=== PATIENT | male | born 1965 | race Caucasian/White ===

== ENCOUNTER 2019-10-22 13:06 | Inpatient (IN) | payer BC, OTHER ==
[~2019-10-22 13:06] MED LIST: Heparin 1,000 UNITS/ML VIAL ONE
[2019-10-22] MEDS ORDERED: Cefepime 2 GM VIAL ONE (13:30)
[2019-10-22] MEDS ORDERED: Vancomycin 1 GM/200 ML BAG ONE (13:30)
[2019-10-22] MEDS ORDERED: Lorazepam 2 MG/ML VIAL ONE (13:38)
[2019-10-22 13:46] LABS: Hemoglobin 15.1 g/dL (14.0-18.0); Mean Corpuscular HGB CONC 31.8 g/dL (32.0-36.0); Mean Corpuscular Hemoglobin 31.6 pg (27.0-31.0); Mean Corpuscular Volume 99.3 fL (78.0-98.0); Mean Platelet Volume 9.7 fL (7.4-10.4); Platelet Count 162 thou/uL (130-400); RBC Distribution Width 12.3 % (11.5-14.5); Red Blood Cell (RBC) Count 4.77 mill/uL (4.70-6.10); White Blood Cell (WBC) Count 15.1 thou/uL (4.8-10.8)
[2019-10-22] MEDS ORDERED: Acetaminophen 500 MG TAB ONE (14:04)
[2019-10-22 14:05] LABS: Band 15 % (5-11); Large Platelets SLIGHT; Lymphocytes 1 % (21-51); MDiff Complete? YES; Monocytes 4 % (0-10); Neutrophil 80 % (42-75); Platelet Morphology Comment Appears Adequate; RBC Morphology Normal; Vacuoles SLIGHT
[2019-10-22 14:13] LABS: ALT (SGPT) 16 U/L (8-55); AST (SGOT) 22 U/L (5-34); Albumin 3.5 g/dL (3.5-5.0); Alkaline Phosphatase 92 U/L (40-110); Anion Gap 19 mmol/L (10-20); BUN (Urea Nitrogen) 26 mg/dL (8.4-25.7); Bilirubin, Total 1.7 mg/dL (0.2-1.2); CK (CPK) 90 U/L (30-200); Calc. Creatinine Clearance 0 mL/min (70-130); Calcium 8.3 mg/dL (7.8-10.44); Carbon Dioxide 19 mmol/L (22-29); Chloride 99 mmol/L (98-107); Estimated GFR-MDRD 61; Globulin 2.8 g/dL (2.4-3.5); Glucose 242 mg/dL (70-105); Lipase 15 U/L (8-78); Potassium 4.2 mmol/L (3.5-5.1); Protein, Total 6.3 g/dL (6.0-8.3); Sodium 133 mmol/L (136-145)
--- NOTE | 2019-10-22 14:45 | RAD ---
XR Chest 1 View Portable HISTORY: Chest pain COMPARISON: None FINDINGS: The heart size is at upper pole limits of normal. The lungs are well expanded without focal areas of consolidation, pneumothorax or pleural effusions. IMPRESSION: No radiographic evidence of acute cardiopulmonary process.
--- NOTE | 2019-10-22 15:03 | RAD ---
XR Foot Lt 3 View STANDARD INDICATION: Emergency examination for left foot pain COMPARISON: None. FINDINGS: Bones: There is hypertrophic destructive and disorganized changes involving the midfoot likely relate d to a neuropathic osteoarthropathy. There is postsurgical change of a ray resection involving the great toe. There is exuberant healed fracture deformity involving the second digit metatarsal shaft. No acute fractures evident. There is ankylosis of the PIP joint of the third digit. No radiopaque foreign body is evident. Joints: Neuropathic osteoarthropathy changes of the midfoot Lisfranc alignment: Residual Lisfranc joint alignment appears within normal limits. There is some sag ging of the Lisfranc joint on the lateral projection suspicious for instability related to neuropathic osteoarthropathy. Soft tissues: Severe soft tissue swelling of the midfoot, forefoot and distal foreleg. IMPRESSION: 1. Ray amputation of the great toe. 2. Neuropathic osteoarthropathy of the midfoot 3. No definite acute osseous abnormality. 4. Prominent soft tissue swelling left foot and ankle.
[2019-10-22] MEDS ORDERED: Diltiazem 125 MG/25 ML ONE (16:07)
--- NOTE | 2019-10-22 16:07 | PDOC.FPRHP ---
- History of Present Illness Chief Complaint: foot hurts History of Present Illness: Patient is a 54 yo male with history of presenting to [facility] ED due to pain in his left foot. Patient states that this has happened before, but not to this extent. His left foot began to swell on Monday, 3 days ago. Patient also noticed that his left foot became quite erythematous and painful by Monday afternoon. Patient has a history of a lumbar back surgery. After his back surgery, he admits to decreased sensation to his feet. He also reports amputation of his left big toe following a bone infection. Today, patient states that he woke up and noticed right arm pain and left chest pain. The chest pain subsided once he got to the ED. In the ED, patient was found to be in atrial fibrillation. - Allergies/Adverse Reactions Allergies Allergy/AdvReac Type Severity Reaction Status Date / Time No Known Allergies Allergy Verified 10/23/19 00:48 - History PMHx: denies past medical history other than surgical history PSHx: left first toe amputation 1 year ago, L1-5 surgery FHx: noncontributory SHx: admits to daily EtoH consumption - 1 bottle of Scotch per day, dips tobacco daily, occasional marijuana use - Review of Systems General: reports: fever/chills Eyes: denies: vision changes ENT: denies: nasal congestion, rhinorrhea Respiratory: denies: cough, congestion, shortness of breath Cardiovascular: reports: chest pain. denies: palpitation, edema Gastrointestinal: denies: nausea, vomiting, diarrhea, constipation, abdominal pain Genitourinary: denies: incontinence, dysuria Skin: denies: rashes, lesions Musculoskeletal: reports: pain, tenderness, swelling Neurological: reports: numbness. denies: weakness Psychological: denies: anxiety, depression - Vital signs BP: 128/63 HR: 139 RR: 26 Tmax: 99.1 Pox: 95% on 2L Wt: 100 kg - Physical Exam Constitutional: NAD, awake, alert and oriented HEENT: normocephalic and atraumatic, EOMI, conjunctiva clear Neck: supple, FROM Chest: no-tender to palpation Heart: other (tachycardic, irregular rhythm) Lungs: no respiratory distress, good air movement, no rales/rhonchi, other ( tachypnec) Abdomen: non-tender, no masses/distention Musculoskeletal: other (tenderness to palpation to the right forearm most prominently in the wrist joint; amputated right first toe with edema and erythema noted) Neurological: DTRs 2+, other (decreased sensation in biltaeral lower extremities ) Skin: no rash/lesions, no jaundice Heme/Lymphatic: no unusual bruising or bleeding, no purpura, no petechia Psychiatric: normal mood and affect, intact recent and remote memory FMR H&P: Results - Labs Result Diagrams: 10/23/19 03:12 10/23/19 03:12 Lab results: WBC 15.1 thou/uL (4.8-10.8) H 10/22/19 13:26 Hgb 15.1 g/dL (14.0-18.0) 10/22/19 13:26 Hct 47.4 % (42.0-52.0) 10/22/19 13:26 MCV 99.3 fL (78.0-98.0) H 10/22/19 13:26 Plt Count 162 thou/uL (130-400) 10/22/19 13:26 Band Neuts % (Manual) 15 % (5-11) H 10/22/19 13:26 Sodium 133 mmol/L (136-145) L 10/22/19 13:26 Potassium 4.2 mmol/L (3.5-5.1) 10/22/19 13:26 Chloride 99 mmol/L (98-107) 10/22/19 13:26 Carbon Dioxide 19 mmol/L (22-29) L 10/22/19 13:26 BUN 26 mg/dL (8.4-25.7) H 10/22/19 13:26 Creatinine 1.24 mg/dL (0.7-1.3) 10/22/19 13:26 Glucose 242 mg/dL (70-105) H 10/22/19 13:26 Lactic Acid 2.8 mmol/L (0.5-2.2) H 10/22/19 13:26 Calcium 8.3 mg/dL (7.8-10.44) 10/22/19 13:26 Total Bilirubin 1.7 mg/dL (0.2-1.2) H 10/22/19 13:26 AST 22 U/L (5-34) 10/22/19 13:26 ALT 16 U/L (8-55) 10/22/19 13:26 Alkaline Phosphatase 92 U/L (40-110) 10/22/19 13:26 Creatine Kinase 90 U/L (30-200) 10/22/19 13:26 Serum Total Protein 6.3 g/dL (6.0-8.3) 10/22/19 13:26 Albumin 3.5 g/dL (3.5-5.0) 10/22/19 13:26 Lipase 15 U/L (8-78) 10/22/19 13:26 - Radiology Interpretation Other Additional comment: Chest Xray: no radiographic evidence of acute cardiopulmnary process Foot Xray: ray amputation of great toe, neuropathic osteoarthropathy of midfoot , no definite acute osseous abnormality, prominent soft tissue swelling FMR H&P: A/P - Plan Afib with RVR - likely 2/2 to sepsis - started on dilt drip - TTE ordered - admitting to IMCU - BNP ordered Sepsis - source: likely cellulitis vs. septic joint vs. gout - SIRS criteria: tachycardic, tachypneic, WBC of 15.1 - lactic acid: 2.8 > 1.4 - started on vanc and cefepime - s/p fluids in ED - ESR, CRP, Uric acid pending Hyperglycemia - glucose of 242, denies history of DM - will order A1C Alcohol Abuse - reports drinking 1+ pint of scotch/day - denies any history of withdrawal signs/symptoms - ASE protocol in place PCP: CC PPx: Lovenox Diet: NPO Code: Full Dispo: will admit to IMCU; LOS > 48hrs FMR H&P: Upper Level - Pertinent history 54-year-old male presents to the emergency department complaining of right wrist left foot and left-sided chest pain. Patient stated that his left foot started hurting on Monday. Right wrist started hurting today. Left-sided chest pain started later this morning. Patient does not recall if he had any specific injuries. Patient states that she chronically drinks 1 pint or more of scotch per day. Denies any history of withdrawal. 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 Due to this he has had chronic problems with his feet and subsequently had a amputation of his left great metatarsal Grace approximately one year ago. He noticed that his left foot started to become painful and swollen and red a few days ago. He states that he has poor feeling in the foot but does experience pain currently. In the emergency department patient was found to be in a fib with RVR which the patient states is a new findings to him. He was also found to have a elevated glucose but denies any history of diabetes. Patient admitted that he has not seen a doctor in to or greater years. He states that he normally receives most of his care at an outside facility but came here today because his Daughter works at this hospital and he suspects that he has multiple problems going on which concerns him. ROS: General: denies fevers, chills, fatigue pulm: Denies shortness of breath, cough, rhinorrhea cardiac: denies palpitations, lightheadedness, dizziness. confirms left cgeat wall pain GI: denies nausea, vomiting, diarrhea Extremities: confirms left fore foot, right wrist pain Skin: denies any lesions, infections. Confirms left foot swelling and erythema Neuro: Confirms Bilateral foot numbness. Denies headache, weakness, dizziness PE: Gen: Appears sleepy, likely 2/2 to benzos in ED, well nourished, NAD HEENT: EMOI, no scleral icterus Pulm: CTAB Cardiac: irregularly irregular with rapid rate, no audible murmur Abd: Soft, non tender, non distended Ext: Left foot with mid 1 metatarsal amputation, swollen, minimally tender and erythematous. chronic charcot changes to bilateral feet. right wrist is very tender with in ROM or palpation. pulse and sensation intact. Neuro: A&Ox3 Skin: No rash or jaundice - Pertinent findings New onset afib with RVR - Received 2x 5mg IV push of dilt in ED followed by dilt ggt - Initially had low BP response that improved after 2L NS - Will admit to IMCU and continue dilt drip with goal of rate control - If BP continues to be a problem will need to consider amio and cards consult - If hemodynamically unstable consider defib - Afib likely 2/2 to new sepsis, if does not resolve will need to consider therapeutic anticoagulation - Trops negative, trend x3 Sepsis - Cellulitis vs septic joint vs osteomyelitis vs gout - ESR, CRP, uric acid, procal ordered - Likely will need left foot MRI to r/o osteo vs other soft tissue infection - xray was not definitive and showed severe soft tissue swelling - Continue fluid resuscitation - IV vanc and cefepime - Continue to trend CBC and monitor left foot Alcohol Abuse - 1 pint or more of scotch per day, no hx of withdrawal - ASE protocol - Will discuss and encourage cessation Hyperglycemia - Likely 2/2 to DM, denies hx - A1c ordered Plan: Admit to IMCU for dilt drip management. Goal of rate control. Will continue to work up source of sepsis, most likely due to left foot but unsure exact cause. Will continue to medically optimize other underlying medical issues. For more detail see PGY1 note above Antonio Spears PGY2 - Plan Date/Time: 10/22/19 1341 I, [], have evaluated this patient and agree with findings/plan as outlined by summer internship resident. Pertinent changes/additions are listed here. Addendum - Attending - Attending Attestation Date/Time: 10/23/19 0769 I personally evaluated the patient and discussed the management with the team. I agree with the History, Examination, Assessment and Plan documented above with any addition or exceptions noted below. Antibiotics and consider additional imaging. Blood cultures. Begin low dose cardizem. O2 PRN. Monitor closely in IMCU.
[2019-10-22 16:29] LABS: SARS-CoV-2 NAA Rapid Test Not Detected (NotDetected)
--- NOTE | 2019-10-22 17:17 | RAD ---
XR Wrist 3 Rt View STANDARD: 10/22/2019 4:32 PM CLINICAL INDICATION: Right wrist pain COMPARISON: None. FINDINGS: Bones: No acute osseous abnormality. Joints: Joints space is preserved.. Soft Tissue: Normal.. IMPRESSION: No acute osseous abnormality..
[2019-10-22 17:24] LABS: Lactic Acid 1.4 mmol/L (0.5-2.2)
[2019-10-22] MEDS ORDERED: Diltiazem 125 MG in Sodium Chloride 0.9% 100 ML IVPB SCH (17:57)
[2019-10-22 20:13] LABS: Hemoglobin A1c 5.2 % (4.0-6.0)
[2019-10-22 20:20] LABS: Uric Acid 5.3 mg/dL (3.5-7.2)
[2019-10-22 20:25] LABS: Troponin I 0.024 ng/mL (< 0.028)
[2019-10-22 20:41] LABS: CRP (Inflammatory) 37.47 mg/dL (= or < 0.5)
[2019-10-22] MEDS ORDERED: Vancomycin HCl 1.25 GM in Sodium Chloride 0.9% 250 ML 250 ML IVPB SCH (21:00)
[2019-10-22] MEDS: Cefepime 2 GM in Sodium Chloride 0.9% 100 ML IVPB SCH (21:28)
[2019-10-23] MEDS: Lactated Ringer's 1,000 ML IV SCH ×4 (00:43→23:16)
[2019-10-23] MEDS: Vancomycin 1.5 GRAM/300 ML BAG 1.5 GM in Premix Bag 1 BAG IVPB SCH ×2 (03:00→14:08)
[2019-10-23 03:36] LABS: Band 22 % (5-11); Hemoglobin 13.7 g/dL (14.0-18.0); Lymphocytes 4 % (21-51); MDiff Complete? YES; Mean Corpuscular HGB CONC 34.1 g/dL (32.0-36.0); Mean Corpuscular Hemoglobin 34.2 pg (27.0-31.0); Mean Platelet Volume 8.6 fL (7.4-10.4); Monocytes 7 % (0-10); Neutrophil 67 % (42-75); Platelet Count 164 thou/uL (130-400); Platelet Morphology Comment Appears Adequate; RBC Distribution Width 12.4 % (11.5-14.5); Red Blood Cell (RBC) Count 4.01 mill/uL (4.70-6.10); White Blood Cell (WBC) Count 15.1 thou/uL (4.8-10.8)
[2019-10-23 03:43] LABS: ALT (SGPT) 13 U/L (8-55); AST (SGOT) 20 U/L (5-34); Albumin 2.9 g/dL (3.5-5.0); Alkaline Phosphatase 67 U/L (40-110); Anion Gap 13 mmol/L (10-20); BUN (Urea Nitrogen) 19 mg/dL (8.4-25.7); Bilirubin, Total 1.4 mg/dL (0.2-1.2); Calc. Creatinine Clearance 169 mL/min (70-130); Calcium 8.4 mg/dL (7.8-10.44); Carbon Dioxide 20 mmol/L (22-29); Chloride 106 mmol/L (98-107); Estimated GFR-MDRD Greater than 90; Glucose 99 mg/dL (70-105); Potassium 3.8 mmol/L (3.5-5.1); Protein, Total 5.9 g/dL (6.0-8.3); Sodium 135 mmol/L (136-145)
[2019-10-23] MEDS: Cefepime 2 GM in Sodium Chloride 0.9% 100 ML IVPB SCH ×3 (05:42→20:53)
--- NOTE | 2019-10-23 06:21 | PDOC.FM ---
- Subjective Subjective: Mr. Roy continues to complain of severe pain in his R hand. He describes the pain as a 10/10 burning most intense in his wrist, but extending to the tips of his fingers and proximal to the elbow. It is painful constantly and exacerbated by movement and palpation. It does not appear swollen and he denies feeling tight. Endorses some L foot pain but mostly at his heel which he suspects is d/ t walking a long distance to the ED yesterday. Endorses some L sided heart pressure that he states he mostly feels if he has slept wrong on his L shoulder. He denies any association with exertion. Denies dyspnea/SOB/trembling. - Objective Vital Signs & Weight: Vital Signs (12 hours) Temp Pulse Ox 10/23/19 04:00 99.8 F H 10/22/19 23:44 97.8 F 10/22/19 20:00 99.2 F 96 Weight Weight 102.149 kg Most Recent Monitor Data Heart Rate from ECG 76 NIBP 135/77 NIBP BP-Mean 96 Respiration from ECG 25 SpO2 97 Result Diagrams: 10/23/19 03:12 10/23/19 03:12 Phys Exam - Physical Examination Constitutional: NAD Neck: supple Respiratory: clear to auscultation bilateral Cardiovascular: no significant murmur HR irregular L midfoot 1+ pitting edema. No edema of R hand/forearm Dorsalis pedis pulses not palpable b/l. Radial pulses 1+ Psychiatric: normal affect, A&O x 3 Skin: no rash Deviation from normal: Erythema of L midfoot swelling -: No erythema/discoloration of R hand/forearm Dx/Plan - Plan Plan: This is a 54M who presented to the ED with R arm pain and L sided CP Afib with RVR - Likely 2/2 to sepsis therefore not anticoagulating currently - Received 2x 5mg IV push of dilt in ED followed by dilt gtt Initially had low BP response that improved after 2L NS - Continue dilt gtt Admitting to IMCU If BP continues to be a problem, will need to consider amio If hemodynamically unstable, consider defib - Fluctuating in and out of NSR - Will consult cards - TTE ordered, results pending - BNP 168 Sepsis - Source: likely cellulitis vs. septic joint vs. gout - SIRS criteria: tachycardic, tachypneic, WBC of 15.1 - Lactic acid: 2.8 > 1.4 - Vanc and Cefepime started 10/21 - ESR 68 - CRP37.5 - Uric acid nml - BCx pending - Foot xray not definitive. Showed severe soft tissue swelling of midfoot and neuropathic osteoarthropathy - Dr. Jackson saw him and agreed with need for MRI, continued abx - Will obtain L foot MRI - Will consult ortho R arm pain - Unclear etiology - Burning 10/10 pain worst at wrist but extending to tips of fingers and proximal to elbow - No erythema/edema/deformity - Will consult ortho - Consider MRI Hyperglycemia - Glucose of 242 on arrival - Denies history of DM - A1C 5.2 - Monitor BGs Alcohol Use Disorder - Reports drinking 1+ pint of scotch/day - Denies any history of withdrawal signs/symptoms - ASE protocol in place PCP: KADIE PPx: Lovenox Diet: NPO Code: Full Dispo: will admit to IMCU; LOS > 48hrs Addendum - Attending - Attending Attestation Date/Time: 10/23/19 1411 I personally evaluated the patient and discussed the management with the team. I agree with the History, Examination, Assessment and Plan documented above with any addition or exceptions noted below. Discuss foot and arm with ortho. Continue antibiotics. MRI foot. D/c gtt after overlapping with PO. Cards consult for afib
[2019-10-23] MEDS ORDERED: Vancomycin HCl 1.5 GM in Sodium Chloride 0.9% 250 ML 300 ML IVPB SCH (09:00)
[2019-10-23] MEDS: Enoxaparin Sodium 40 MG/0.4 ML SYRINGE SC SCH (09:40)
[2019-10-23] MEDS ORDERED: Diltiazem HCl SR 90 mg Capsule PO SCH (10:30)
[2019-10-23] MEDS ORDERED: Diltiazem HCl SR 60 mg Capsule PO SCH (11:00)
--- NOTE | 2019-10-23 13:43 | CON ---
DATE OF CONSULTATION: 10/23/2019 REASON FOR CONSULTATION: The patient is in [facility]. HISTORY OF PRESENT ILLNESS: The patient is pleasant, 54 years old, who presented to the ER yesterday with left foot pain and right arm pain. Apparently, swelling in left foot began 3 days prior to admission. It has become erythematous and quite painful. He does have a history of left great toe amputation in the past. He also has a history of Charcot joint in that area. The right arm pain is somewhat mysterious. He does not know how that happened, but he says it is very difficult to move the right arm and very tender to the touch. PAST MEDICAL HISTORY: Essentially unremarkable. PAST SURGICAL HISTORY: Left first toe amputation a year ago. FAMILY MEDICAL HISTORY: Unremarkable. SOCIAL HISTORY: Drinks up to a pint of scotch per day, but usually not that much. Dips tobacco daily. Occasional marijuana use. REVIEW OF SYSTEMS: Otherwise negative. PHYSICAL EXAMINATION: VITAL SIGNS: Temperature 99.4, pulse 76, blood pressure 126/86, O2 saturation 95%. GENERAL: He is awake and alert, in no distress. HEENT: Remarkable for class 4 Mallampati airway with tongue hypertrophy. NECK: No adenopathy or JVD. LUNGS: Clear. CARDIAC: S1 and S2, now regular, currently on Cardizem drip at 5 mg/hour. ABDOMEN: Soft and nontender to palpation. EXTREMITIES: No clubbing. He has extensive swelling in his left foot with 4+ pitting edema. He has tenderness over right dorsal aspect of his arm. LABORATORY DATA: Sodium 135, potassium 3.8, chloride 106, CO2 of 20, BUN 19, creatinine 0.7, and glucose 99. Hemoglobin A1c is 5.2. Total bilirubin 1.4. C-reactive protein 37. COVID test negative. White blood cell count 15, hematocrit 40, and platelet count 164 with 67% neutrophils, 22% bands, sedimentation rate is 68. IMAGING DATA: Radiographs of the foot, arm, chest are negative. ASSESSMENT: The patient appears to have either some type of cellulitis or rheumatologic phenomenon going on. Presentation does seem consistent with sepsis and bacteremia. PLAN: 1. Agree with antibiotics. 2. Would do further imaging of arm and foot. 3. Consider orthopedic consultation for foot. 4. Monitor for alcohol withdrawal symptoms. 5. Given his alcohol consumption, I would put him on thiamine. Job ID: [id number]
--- NOTE | 2019-10-23 16:12 | MRI ---
EXAM: MRI Lower Ext Jt Lt W WO Con DATE: 10/23/2019 11:41 AM INDICATION: Left foot infection COMPARISON: Left foot radiograph dated October 22, 2019 FINDING: Contrast: 20 cc of MultiHance. There is postprocedural change of a great toe ray amputation. There is extensive soft tissue swelling and cellulitis involving the dorsal aspect of the foot and ankle. There is multiloculated fluid collections surrounding the midfoot and forefoot suspicious for abscesses. One of the largest measure s 4.3 x 8.2 cm on image 15 of series 9 overlying the dorsal aspect of the midfoot. There is an additional fluid collection seen along the medial soft tissues of the midfoot, at the level of the ta lar head measuring 3.3 cm. An additional fluid collection is seen subjacent to the great toe metatarsal base measuring 2.9 cm on image 27 of series 11. There is some edematous change and mild en hancement involving the mid foot which has radiographic changes of a neuropathic osteoarthropathy. Component of an osteomyelitis particularly involving the cuneiforms, navicular and cuboid are of conc reanna. There is prominent healed deformity involving the second digit metatarsal shaft. IMPRESSION: 1. Abnormal T2 hyperintensity with enhancement involving the mid foot tarsal bones is likely largely related to a neuropathic osteoarthropathy; however, superimposed osteomyelitis cannot be entirely excluded. 2. Prominent loculated peripherally enhancing fluid collections surrounding the midfoot are suspiciou s for periarticular abscesses. 3. Prominent left foot cellulitis and edema.
[2019-10-23] MEDS: Acetaminophen 325 MG TAB PO PRN (16:26)
[2019-10-23] MEDS ORDERED: Magnevist 469MG/ML 20 ML VIAL ONE (16:27)
[2019-10-23] MEDS: Ibuprofen 600 MG TAB PO PRN (16:41)
[2019-10-23] MEDS: Diltiazem HCl SR 60 mg Capsule PO SCH (20:51)
--- NOTE | 2019-10-23 22:16 | CON ---
DATE OF CONSULTATION: CHIEF COMPLAINT: Left foot infection. HISTORY OF PRESENT ILLNESS: Mr. Roy is a 54-year-old male, who presented to the hospital yesterday. He reports that over the weekend, he began having malaise and feeling sickly. He began having fevers and chills. He also began having left foot swelling and redness as well as warmth. He began having right arm numbness and pain as well. The patient has been admitted to the hospital. He has been started on intravenous antibiotics for possible sepsis. MRI has been obtained as well as foot x-rays. The patient has a known history of Charcot arthropathy of the feet, left more severe than the right. He also has a history of left great toe amputation 1 year ago. He reports that his foot is always enlarged and malaligned, however, it is worse now since the weekend. He has increased swelling, much more so than normal. PAST MEDICAL HISTORY: Previous back injury and subsequent surgery leading to dense neuropathy of the bilateral lower extremities. PAST SURGICAL HISTORY: Previous back surgery as well as left great toe amputation. FAMILY MEDICAL HISTORY: Noncontributory. SOCIAL HISTORY: The patient drinks alcohol daily. He uses tobacco, uses marijuana. He denies other drug use. REVIEW OF SYSTEMS: Positive as per HPI. Otherwise, negative 10-point review of systems. IMAGING DATA: X-rays of the left foot as well as MRI of the left foot demonstrate advanced Charcot arthropathy of the midfoot. There is previous great toe amputation. There are destructive changes and extensive arthropathy throughout the midfoot. He does have a large fluid collection dorsally as well as medially at the foot consistent with possible abscess. There is some edema and fluid of the midfoot, which is more consistent with Charcot changes rather than osteomyelitis. Right wrist x-rays are negative. PHYSICAL EXAMINATION: VITAL SIGNS: Current temperature is 97.8, heart rate is 89, respiratory rate is 19, oxygen saturation 99%. GENERAL: He is alert, talkative, no apparent distress. HEENT: Normocephalic, atraumatic. RESPIRATORY: Breathing comfortably. ABDOMEN: Soft, nontender, nondistended. MUSCULOSKELETAL: The patient's left lower extremity has obvious Charcot changes. There is deformity of the foot with prominent talar head medially. There is pes planus. He has had amputation of the great toe with healed wounds. There is a superficial ulceration of the plantar foot. He has a large dorsal swelling of the foot with fluctuance to palpation dorsally. The foot is warm and erythematous. He has cellulitic changes as well. The patient's right upper extremity has difficulty with motion at the hand. He has neuropathy to light touch. He is able to just very minimally move the fingers. He has a strongly palpable pulse. There is no significant ecchymosis. No evidence of compartment syndrome. IMPRESSION: A 54-year-old male with peripheral neuropathy, Charcot arthropathy, and now likely an infection of the midfoot with abscess formation. The patient also has neuropathy of the right arm consistent with compression. I have seen very similar findings in someone who has passed out from alcohol intoxication and laid on their arm. I think this is the most likely scenario explaining his arm findings. PLAN: Regarding the foot, we will plan for operative intervention tomorrow if he is not significantly improved. He will likely need a dorsal incision for drainage of his abscess. His foot is very severely damaged from his neuropathic changes; however, I do not think he would want to proceed with amputation at this point. We will try to salvage the foot and clear the infection. He will need to continue intravenous antibiotics. Observation for his right arm with elevation and continued attempts at movement of the fingers. N.p.o. midnight with preparation for surgery tomorrow. Job ID: [id number]
[2019-10-24 01:09] LABS: Vancomycin, Trough 12.8 ug/mL
[2019-10-24] MEDS: Vancomycin 1.5 GRAM/300 ML BAG 1.5 GM in Premix Bag 1 BAG IVPB SCH ×3 (02:09→18:21)
[2019-10-24 04:05] LABS: ALT (SGPT) 26 U/L (8-55); AST (SGOT) 32 U/L (5-34); Albumin 2.8 g/dL (3.5-5.0); Alkaline Phosphatase 83 U/L (40-110); Anion Gap 13 mmol/L (10-20); BUN (Urea Nitrogen) 16 mg/dL (8.4-25.7); Bilirubin, Total 0.6 mg/dL (0.2-1.2); Calc. Creatinine Clearance 169 mL/min (70-130); Calcium 8.2 mg/dL (7.8-10.44); Carbon Dioxide 22 mmol/L (22-29); Chloride 105 mmol/L (98-107); Estimated GFR-MDRD Greater than 90; Globulin 2.8 g/dL (2.4-3.5); Glucose 97 mg/dL (70-105); Potassium 3.5 mmol/L (3.5-5.1); Protein, Total 5.6 g/dL (6.0-8.3); Sodium 136 mmol/L (136-145)
[2019-10-24 05:10] LABS: Band 7 % (5-11); Eosinophils 5 % (0-10); Hemoglobin 12.9 g/dL (14.0-18.0); Hypochromia SLIGHT = 6-15 cells (100X) (0-5/hpf); Lymphocytes 6 % (21-51); MDiff Complete? YES; Mean Corpuscular HGB CONC 33.8 g/dL (32.0-36.0); Mean Corpuscular Hemoglobin 34.2 pg (27.0-31.0); Mean Platelet Volume 8.8 fL (7.4-10.4); Monocytes 5 % (0-10); Neutrophil 77 % (42-75); Platelet Count 180 thou/uL (130-400); Platelet Morphology Comment Appears Adequate; RBC Distribution Width 12.4 % (11.5-14.5); Red Blood Cell (RBC) Count 3.76 mill/uL (4.70-6.10); White Blood Cell (WBC) Count 13.8 thou/uL (4.8-10.8)
--- NOTE | 2019-10-24 05:28 | PDOC.FM ---
- Subjective Subjective: Mr. Roy is doing well this morning with improved R arm pain. His R arm is elevated above his head as recommended by Dr. Paredes. Pt is aware plan is to take him to OR for I&D today. He denies SOB/dyspnea/CP/V. Endorses some D which he attributes to lack of diet and several medications. - Objective Vital Signs & Weight: Vital Signs (12 hours) Temp 10/24/19 04:00 97.0 F L 10/24/19 00:00 97.4 F L 10/23/19 19:35 97.8 F Weight Admit Weight 102.149 kg Weight 102.149 kg Most Recent Monitor Data Heart Rate from ECG 63 NIBP 125/78 NIBP BP-Mean 93 Respiration from ECG 14 SpO2 100 I&O: 10/22/19 10/23/19 10/24/19 06:59 06:59 06:59 Intake Total 2260 Output Total 625 Balance 1635 Result Diagrams: 10/24/19 03:19 10/24/19 03:19 Phys Exam - Physical Examination Constitutional: NAD Neck: supple Respiratory: no wheezing, no rales, clear to auscultation bilateral Cardiovascular: RRR, no significant murmur Musculoskeletal: pulses present (Strong radial and dp pulses b/l.) Edema/Erythema of L midfoot increased sicne yesterday. Neurological: non-focal, moves all 4 limbs Psychiatric: normal affect, A&O x 3 Skin: no rash Dx/Plan - Plan Plan: This is a 54M who presented to the ED with R arm pain and L sided CP Afib with RVR - Likely 2/2 to sepsis therefore not anticoagulating currently - Received 2x 5mg IV push of dilt in ED followed by dilt gtt Initially had low BP response that improved after 2L NS - Dilt gtt discontinued 10/22. Now PO. Admitting to IMCU. If BP continues to be a problem, will need to consider amio If hemodynamically unstable, consider defib - Fluctuating in and out of NSR therefore keeping him in IMCU, per Joel - Consulted cards (Dr. Maldonado), appreciate recs Recommended continued PO Diltiazem Is considering long-term anticoagulation depending on if AFib resolves - Echo showed EF 50-55% with moderate tricuspid/mitral regurg and mildly dilated LA - BNP 168 Sepsis - Source: likely cellulitis vs. septic joint vs. gout - SIRS criteria: tachycardic, tachypneic, WBC of 15.1 - Lactic acid: 2.8 > 1.4 - Vanc and Cefepime started 10/21 - ESR 68 - CRP37.5 - Uric acid nml - BCx pending Two samples NGTD x1 day - Foot xray not definitive. Showed severe soft tissue swelling of midfoot and neuropathic osteoarthropathy - L foot MRI showed suspicion for periarticular abscess. Could not r/o osteo - Consulted ortho. Dr. Jackson recommended continuation of abx and I&D of L foot on 10/23 - Will consult PT/OT/post-acute care/CM d/t to severity of Charcot foot R arm pain - Unclear etiology - Burning, sharp, deep and superficial pain worst at wrist but extending to tips of fingers and proximal to elbow - No erythema/edema/deformity - R wrist xray normal - Ortho consulted, appreciate recs - Consider MRI - Dr. Maldonado recommended R UE U/S to r/o venous causes despite what would be an atypical presentation for it Hyperglycemia - Glucose of 242 on arrival - Denies history of DM - A1C 5.2 - Monitor BGs Alcohol Use Disorder - Reports drinking scotch daily - Denies any history of withdrawal signs/symptoms - ASE protocol in place - No withdrawal sxs PCP: [facility] PPx: Lovenox Diet: NPO Code: Full Dispo: will admit to IMCU; LOS > 48hrs Addendum - Attending - Attending Attestation Date/Time: 10/24/19 6601 I personally evaluated the patient and discussed the management with the team. I agree with the History, Examination, Assessment and Plan documented above with any addition or exceptions noted below.
[2019-10-24] MEDS: Cefepime 2 GM in Sodium Chloride 0.9% 100 ML IVPB SCH ×3 (06:07→21:55)
[2019-10-24] MEDS: Lactated Ringer's 1,000 ML IV SCH ×3 (06:08→18:21)
[2019-10-24] MEDS: Ibuprofen 600 MG TAB PO PRN (08:14)
[2019-10-24] MEDS: Acetaminophen 325 MG TAB PO PRN (08:15)
[2019-10-24] MEDS: Diltiazem HCl SR 60 mg Capsule PO SCH ×2 (08:15→21:51)
[2019-10-24] MEDS: Thiamine 100 MG TAB PO SCH (08:15)
[2019-10-24] MEDS: Enoxaparin Sodium 40 MG/0.4 ML SYRINGE SC SCH (08:16)
--- NOTE | 2019-10-24 09:04 | PRG ---
DATE OF SERVICE: 10/24/2019 SUBJECTIVE: Mr. Roy is doing better. His rate appears controlled. He has sinus rhythm with PACs. He is currently on diltiazem only. Arm appears to be improved. He has less pain today versus yesterday. OBJECTIVE: VITAL SIGNS: Blood pressure 120/80, pulse 72, respirations 20. LUNGS: Clear to auscultation. HEART: Regular rate and rhythm with extrasystolic beat. ABDOMEN: Soft, nontender, nondistended. EXTREMITIES: No edema. IMPRESSION: 1. Atrial fibrillation. 2. Cellulitis. 3. Alcohol abuse. 4. Right arm pain. RECOMMENDATIONS: 1. Recommend venous duplex of the right upper extremity. 2. Continue Cardizem. 3. The patient is scheduled for I and D today. 4. Given the patient's low CHADS2-VASc score, I would recommend full-dose aspirin. Job ID: [id number]
--- NOTE | 2019-10-24 09:11 | CON ---
DATE OF CONSULTATION: 10/23/2019 REASON FOR CONSULTATION: Paroxysmal atrial fibrillation. PRIMARY SPECIAL EDUCATION INCLUSION TEACHER: None. HISTORY OF PRESENT ILLNESS: Mr. Roy is a pleasant 54-year-old gentleman who recently presented with cellulitis. He was found to be in atrial fibrillation with rapid ventricular response. He was placed on IV Cardizem. He has fluctuated between atrial fibrillation and sinus rhythm. He is currently asymptomatic. His main complaint today is left arm pain. He does have a strong alcohol history, drinking a quart of scotch likely every night. He continues to work. He states he has been told he has had atrial fibrillation in the past, but states was unsure. He also was told he had diabetes in the past, but does not feel like he does. His Hb A1c was less than 6. PAST MEDICAL HISTORY: Charcot foot. SURGICAL HISTORY: Left first toe amputation. FAMILY HISTORY: Negative. SOCIAL HISTORY: Positive alcohol use. Positive tobacco use. Occasional marijuana use. REVIEW OF SYSTEMS: Ten-point review of systems is reviewed and as above, otherwise negative. PHYSICAL EXAMINATION: VITAL SIGNS: Blood pressure 131/81, pulse 72, respirations 20. GENERAL: Patient is a pleasant male who is in no acute distress. The patient appears their stated age. NEUROLOGIC: The patient is alert and oriented x3 with no focal neurologic deficits. HEENT: Sclerae without icterus. Mouth has moist mucous membranes with normal pallor. NECK: No JVD. Carotid upstroke brisk. No bruits bilaterally. LUNGS: Clear to auscultation with unlabored respirations. BACK: No scoliosis or kyphosis. CARDIAC: Regular rate and rhythm with normal S1 and S2. No S3 or S4 noted. No significant rubs, murmurs, thrills, or gallops noted throughout the precordium. PMI is not displaced. There is no parasternal heave. ABDOMEN: Soft, nontender, nondistended. No peritoneal signs present. No hepatosplenomegaly. No abnormal striae. EXTREMITIES: 2+ femoral and 2+ dorsalis pedis pulses. No cyanosis, clubbing, or edema. SKIN: No gross abnormalities. PERTINENT LABORATORY DATA: Hemoglobin 12.9, hematocrit 38, white blood cell count 13.8. Creatinine 0.72. C-reactive protein 37. BNP of 168. IMPRESSION: 1. Paroxysmal atrial fibrillation. 2. Alcohol abuse. 3. Cellulitis. 4. Right arm pain. RECOMMENDATIONS: Patient's CHADS Vasc score is 1. He does not appear to have diabetes based on his most recent HbA1c. He does have hypertension, although states his blood pressure per his account has been stable. He is on no medications at home. His CHADS score in my opinion is between 0 and 1. I discussed anticoagulation therapy versus aspirin. He would like to proceed with aspirin therapy only. Would certainly seem reasonable. Given that his heart rate is currently stable, would recommend continuing p.o. Cardizem in addition to antibiotic therapy. For his left arm pain, would recommend a venous duplex of the upper extremity, although no swelling present. He has an excellent pulse noted to the radial artery, so unlikely to be an obstruction from a vascular standpoint. I did employee counselor him on alcohol abuse. He is on DT protocol. Job ID: [id number]
--- NOTE | 2019-10-24 09:12 | PRG ---
DATE OF SERVICE: 10/24/2019 SUBJECTIVE: The patient is going down the OR later today for drainage of abscess in his left foot. Overall, he feels better today. OBJECTIVE: VITAL SIGNS: Temperature 99, pulse 72, blood pressure 131/81. HEENT: Unremarkable. NECK: No JVD. LUNGS: Clear. CARDIAC: S1 and S2. Regular. ABDOMEN: Soft. EXTREMITIES: Left foot swelling. LABORATORY DATA: White blood cell count 13, hematocrit 38, and platelet count 118. Sodium 136, potassium 3.5, BUN 16, creatinine 0.7, and glucose 97. ASSESSMENT: 1. Charcot joint, left foot. 2. Foot abscess. 3. Alcohol abuse. PLAN: 1. Continue antibiotics. 2. Probably stable enough to move out to the surgical floor postop today. Job ID: [id number]
--- NOTE | 2019-10-24 09:42 | ULT ---
Exam: Right upper extremity venous ultrasound with Doppler HISTORY: Right arm pain COMPARISON: None TECHNIQUE: Grayscale, color flow, Doppler imaging and spectral wave form analysis of the right approx imately venous system FINDINGS: There is compressibility and flow of the internal jugular vein. The flow in the subclavian vein. Ther e is compressibility and flow in the axillary vein and brachial vein, cephalic vein, basilic vein, radial vein and ulnar vein. IMPRESSION: No evidence of thrombus in the right upper extremity venous system.
[2019-10-24] MEDS ORDERED: Dexamethasone 20 MG/5 ML VIAL ONE (10:16)
[2019-10-24] MEDS ORDERED: Ondansetron PF 4 MG/2 ML Vial ONE (10:16)
[2019-10-24] MEDS ORDERED: Metoclopramide HCl 10 MG/2 ML VIAL ONE (10:16)
[2019-10-24] MEDS ORDERED: Ketorolac Tromethamine 30 MG/ML VIAL ONE (10:16)
[2019-10-24] MEDS ORDERED: Lidocaine 1% PF 5 ML VIAL ONE (10:16)
[2019-10-24] MEDS ORDERED: PROPOFOL 200 MG/20 ML VIAL ONE (10:16)
[2019-10-24] MEDS ORDERED: Neomycin-Polymyxin 1 ML AMP ONE (10:55)
[2019-10-24] MEDS ORDERED: Famotidine/PF 20 mg/2ml Vial ONE (11:26)
[2019-10-24] MEDS ORDERED: Fentanyl 100 MCG/2 ML VIAL ONE (11:26)
[2019-10-24] MEDS ORDERED: Promethazine HCl 25 MG/ML VIAL SLOW IVP PRN (13:15)
[2019-10-24] MEDS ORDERED: Promethazine HCl 25 MG/ML VIAL IM PRN (13:15)
[2019-10-24] MEDS ORDERED: Ondansetron HCl/PF 4 MG/2 ML Vial IVP PRN (13:15)
[2019-10-24] MEDS: Aspirin 325 MG TAB PO SCH (15:01)
--- NOTE | 2019-10-24 18:19 | OP ---
DATE OF PROCEDURE: 10/24/2019 OPERATION PERFORMED: Irrigation and debridement of left foot abscess. PREOPERATIVE DIAGNOSIS: Left foot infection with abscess over the dorsal foot. POSTOPERATIVE DIAGNOSIS: Left foot infection with abscess over the dorsal foot. COMPLICATIONS: None. ESTIMATED BLOOD LOSS: Minimal. SPARE HAND CARDING: Alonso Saunders PA-C. IMPLANTS: None. INDICATIONS: Mr. Roy is a 54-year-old male who has Charcot arthropathy of the foot. He has developed sepsis. He has been found to have a large abscess and infection of the left midfoot. He has been indicated for irrigation and debridement of the foot to hopefully eradicate infection. He is at high risk of further infection and other complications including the possible need for amputation in the future. DESCRIPTION OF PROCEDURE: Mr. Roy was identified in the preoperative holding area. His correct extremity was marked. He was carried to the operating room. He was positioned supine. General anesthesia was induced. A multidisciplinary time-out was performed. The left lower extremity was prepped and draped in sterile fashion. We began the procedure with a dorsal incision over the foot. We dissected down through the subcutaneous tissues to the fascia, which was opened. We encountered a large purulent abscess. This was cultured. There was quite a bit of fluid evacuated. We at this point thoroughly irrigated with copious lavage. We performed an excisional debridement. We worked down to the bony level. We opened the midfoot joints and irrigated into the joints themselves as well. There was purulence of the deep joints. We performed an excisional debridement with a knife as well as a curette. We then loosely closed the skin edges. At this point, we packed the wound with a Kerlix gauze soaked in Betadine. A sterile dressing was applied. The patient was taken to the recovery room in good condition without complication. Job ID: [id number]
[2019-10-25] MEDS: Vancomycin 1.5 GRAM/300 ML BAG 1.5 GM in Premix Bag 1 BAG IVPB SCH ×3 (02:38→19:39)
[2019-10-25] MEDS: Lactated Ringer's 1,000 ML IV SCH (02:38)
[2019-10-25 05:02] LABS: Band 11 % (5-11); Hemoglobin 10.6 g/dL (14.0-18.0); Lymphocytes 5 % (21-51); MDiff Complete? YES; Mean Corpuscular HGB CONC 32.5 g/dL (32.0-36.0); Mean Corpuscular Hemoglobin 33.8 pg (27.0-31.0); Mean Platelet Volume 9.4 fL (7.4-10.4); Monocytes 6 % (0-10); Neutrophil 78 % (42-75); Platelet Count 183 thou/uL (130-400); RBC Distribution Width 12.4 % (11.5-14.5); Red Blood Cell (RBC) Count 3.13 mill/uL (4.70-6.10); White Blood Cell (WBC) Count 12.5 thou/uL (4.8-10.8)
--- NOTE | 2019-10-25 06:18 | PDOC.FM ---
- Subjective Subjective: Mr. Roy is doing well today. The pain in his R wrist has improved and has regained some functionality even though he continues to state it is his greatest source of pain. He states the pain in his foot is not bothering him. He continues to endorse a little L sided CP like when he came in. He describes it as a cramping in his L shoulder that he can feel in his chest some. He has continued to have bowel movements and denies V/D/SOB/dyspnea. - Objective Vital Signs & Weight: Vital Signs (12 hours) Temp BP Pulse Ox 10/25/19 03:36 98.7 F 10/24/19 23:50 98.2 F 10/24/19 20:00 151/76 H 98 10/24/19 19:16 98.1 F Weight Admit Weight 102.149 kg Weight 102.149 kg Most Recent Monitor Data Heart Rate from ECG 58 NIBP 122/75 NIBP BP-Mean 90 Respiration from ECG 22 SpO2 100 I&O: 10/23/19 10/24/19 10/25/19 06:59 06:59 06:59 Intake Total 2260 2880 Output Total 625 950 Balance 1635 1930 Result Diagrams: 10/25/19 03:20 10/25/19 03:20 Phys Exam - Physical Examination Constitutional: NAD (Sitting up comfortably, eating breakfast) Neck: supple, full ROM Rhonchi in lower lobes b/l Cardiovascular: no significant murmur HR irregular Gastrointestinal: no distention Musculoskeletal: pulses present (radial pulses 2+ b/l. dp pulse 2+ in R foot. Could not check R foot d/t bandage), edema present (In L foot, bandaged. 1+ edema at ankle, with mild edema affecting up to mid-tibia) Neurological: non-focal, moves all 4 limbs Psychiatric: normal affect, A&O x 3 Skin: no rash Dx/Plan - Plan Plan: This is a 54M who presented to the ED with R arm pain and L sided CP Afib with RVR - Likely 2/2 to sepsis therefore not anticoagulating currently - Received 2x 5mg IV push of dilt in ED followed by dilt gtt Initially had low BP response that improved after 2L NS - Dilt gtt discontinued 10/22. Now PO. Admitting to IMCU. If BP continues to be a problem, will need to consider amio If hemodynamically unstable, consider defib - Consulted cards (Dr. Maldonado), appreciate recs Recommended continued PO Diltiazem Is considering long-term anticoagulation depending on if AFib resolves HR continues to be irregular. Feels comfortable sending him to floor on CCB with outpt f/u - ASA as anticoagulation therapy d/t CHADSVASC score of 1. - Echo showed EF 50-55% with moderate tricuspid/mitral regurg and mildly dilated LA - BNP 168 Sepsis - Source: likely cellulitis vs. septic joint vs. gout - SIRS criteria: tachycardic, tachypneic, WBC of 15.1 - Lactic acid: 2.8 > 1.4 - Vanc and Cefepime started 10/21 - ESR 68 - CRP37.5 - Uric acid nml - BCx pending Two samples NGTD x2 day - Foot xray not definitive. Showed severe soft tissue swelling of midfoot and neuropathic osteoarthropathy - L foot MRI showed suspicion for periarticular abscess. Could not r/o osteo - Consulted ortho. Dr. Jackson recommended continuation of abx and I&D of L foot on 10/23 Found purulence in joint space, concerning for osteomyelitis Packed wound - Will start [place] 10mg q6h with morphine 2mg q4h for break through pain - Dr. Lawson consulted, appreciate recs - Foot Cx 1: prelim WBCs and mod gram variable cocci - Foot Cx 2: WBCs, no organisms - Will consult PT/OT/post-acute care/CM d/t to severity of Charcot foot - Dr. Jackson comfortable with sending him out of IMCU. Started thiamine. - CMP showed hyponatremia, hypocalcemia, and anemia today, see below Hyponatremia - Na 125 on 10/24, down from 133 yesterday - Unsure if related to LR in addition to good PO diet - IVF discontinued - Will order noon BMP and daily BMPs to monitor Hypocalcemia - Ca 6.0 on CMP. - Corrected Ca 7.5, borderline normal - D/c IVF and monitor. Anemia - Hb 10.6 today, down from 15 - Suspect this is d/t dilution 2/2 IVF - Fluids discontinued - Will continue to monitor R arm pain - Unclear etiology - Burning, sharp, deep and superficial pain worst at wrist but extending to tips of fingers and proximal to elbow - No erythema/edema/deformity - R wrist xray normal - Ortho consulted, appreciate recs - Consider MRI - Dr. Maldonado recommended R UE U/S to r/o venous causes despite what would be an atypical presentation for it U/S unremarkable - Pain and function improving. Continue to monitor Hyperglycemia - Glucose of 242 on arrival - Denies history of DM - A1C 5.2 - Monitor BGs. Alcohol Use Disorder - Reports drinking scotch daily - Denies any history of withdrawal signs/symptoms - ASE protocol in place - No withdrawal sxs PCP: [facility] PPx: Lovenox Diet: NPO Code: Full Dispo: will admit to IMCU; LOS > 48hrs Addendum - Attending - Attending Attestation Date/Time: 10/25/19 1223 I personally evaluated the patient and discussed the management with the team. I agree with the History, Examination, Assessment and Plan documented above with any addition or exceptions noted below. Discuss antibiotic course with Dr. Lawson as the abscess apparently extended intraarticularly and was of course near bone.
[2019-10-25] MEDS: Cefepime 2 GM in Sodium Chloride 0.9% 100 ML IVPB SCH ×3 (06:32→21:54)
--- NOTE | 2019-10-25 08:09 | PRG ---
DATE OF SERVICE: 10/25/2019 SUBJECTIVE: Mr. Roy underwent foot surgery yesterday. He says he feels better today. OBJECTIVE: VITAL SIGNS: Temperature 98.2, pulse 63, blood pressure 131/92. HEENT: Unremarkable. NECK: No adenopathy or JVD. CHEST: Fairly clear to auscultation. CARDIAC: S1 and S2. Regular. No atrial fibrillation. ABDOMEN: Soft. EXTREMITIES: No edema. LABORATORY DATA: White blood cell count 12.5, hematocrit 32, and platelet count 183. Sodium is 125, potassium 3.3, chloride 96, CO2 of 15, BUN 12, creatinine 0.5, glucose 91. ASSESSMENT: 1. Sepsis syndrome from left foot abscess/Charcot joint. 2. Hyponatremia on today's labs-seems like an erroneous result unless the patient drank copious amounts of free water yesterday. PLAN: The patient can be transferred up to the telemetry unit, needs to have continued monitoring because of the paroxysmal atrial fibrillation. He is doing well from a sepsis standpoint. No further recommendation at this time. Available as needed. Job ID: [id number]
--- NOTE | 2019-10-25 08:54 | PRG ---
DATE OF SERVICE: 10/25/2019 SUBJECTIVE: Mr. Roy is doing well. He has remained in sinus rhythm over the last 48 hours. He has intermittent PACs present. No current symptoms. He underwent I and D yesterday. He is on antibiotic therapy. OBJECTIVE: VITAL SIGNS: Blood pressure 131/92, pulse 63, and respirations 20. LUNGS: Clear to auscultation. HEART: Regular rate and rhythm. ABDOMEN: Soft, nontender, and nondistended. EXTREMITIES: No edema. PERTINENT LABORATORY DATA: Hemoglobin 10.6, white blood cell count 12.5. IMPRESSION: 1. Atrial flutter/fibrillation. 2. Cellulitis. 3. Alcohol abuse. RECOMMENDATIONS: 1. I counseled him on cessation of all alcohol. 2. Continue full-dose aspirin, PPI, and calcium channel blockade. 3. Plan on outpatient atrial fibrillation ablation and EP referral. 4. Okay from my standpoint to DC to telemetry monitoring for further evaluation. Job ID: [id number]
[2019-10-25] MEDS: Diltiazem HCl SR 60 mg Capsule PO SCH ×2 (09:22→21:53)
[2019-10-25] MEDS: Aspirin 325 MG TAB PO SCH (09:22)
[2019-10-25] MEDS: Enoxaparin Sodium 40 MG/0.4 ML SYRINGE SC SCH (09:23)
[2019-10-25] MEDS: Thiamine 100 MG TAB PO SCH (09:24)
[2019-10-25] MEDS ORDERED: Morphine 2 MG/ML VIAL SLOW IVP PRN (09:38)
[2019-10-25] MEDS: Acetaminophen 325 MG TAB PO PRN (10:27)
[2019-10-25] MEDS: HYDROcodone/Acetaminophen 10/325 mg Tablet PO SCH ×2 (12:03→19:10)
[2019-10-25 12:56] LABS: Anion Gap 15 mmol/L (10-20); BUN (Urea Nitrogen) 16 mg/dL (8.4-25.7); Calc. Creatinine Clearance 179 mL/min (70-130); Calcium 8.3 mg/dL (7.8-10.44); Carbon Dioxide 17 mmol/L (22-29); Chloride 108 mmol/L (98-107); Estimated GFR-MDRD Greater than 90; Glucose 131 mg/dL (70-105); Potassium 4.3 mmol/L (3.5-5.1); Sodium 136 mmol/L (136-145)
--- NOTE | 2019-10-25 19:44 | CON ---
DATE OF CONSULTATION: 10/25/2019 REASON FOR CONSULTATION: Left foot inflammatory process. HISTORY OF PRESENT ILLNESS: A 54-year-old with history of chronic neuropathy associated with prior lumbosacral spine surgery and Charcot arthropathy for many years now, has had a prior left first toe amputation about a year ago and developed an ulcer at the bottom aspect of his left mid foot region, which developed into an abscess. He was brought in and had I and D by Dr. Paredes. The operative note was reviewed and there was quite a deep penetration of the abscess and required debridement of joints and scraping of the bone and so forth. He is receiving broad-spectrum coverage right now. He had some chest pain and some arrhythmia, which led to admission to [facility], but is being transferred to one of the rooms at the moment. Denies any headaches, visual symptoms, sore throat, odynophagia, or dysphagia. No cough or sputum production. No chest pain. No abdominal pain or diarrhea. No genitourinary symptoms. PAST MEDICAL HISTORY: Includes neuropathy following lumbosacral spine surgery, prior left first toe amputation, and Charcot arthropathy right and left feet. FAMILY HISTORY: Noncontributory. 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 He drinks what he states like of more than 5 drinks a day or one quart of scotch per day. Does not smoke. Dips tobacco. CURRENT MEDICATION LIST: Includes; 1. Cefepime. 2. Vancomycin. 3. Diltiazem. 4. Enoxaparin. 5. Hydrocodone. 6. Thiamine. ALLERGIES: NO KNOWN DRUG ALLERGIES. PHYSICAL EXAMINATION: VITAL SIGNS: His temperature max was 99.8 on arrival, he has been afebrile since. BP 130/80, heart rate 65, and respiratory rate 21 to 29. GENERAL: Appears in no distress. His left foot is dressed. SKIN: Peripheral IV access. He is voiding in the urinal. No lymphadenopathy. HEENT: Ocular movements conjugate. Oral cavity normal. NECK: Supple. LUNGS: Symmetric clear breath sounds. HEART: S1 and S2. Regular rate. No S3 or S4. ABDOMEN: Soft, not distended or tender. No ascites. No bladder distention. EXTREMITIES: Pulses are excellent in lower extremities including popliteal and dorsalis pedis. Moves extremities equally. There is evidence of Charcot deformities in right and left feet. I do not have a photo of the wounds, so I did not remove the dressing. NEUROLOGIC: His cognitive function appears to be intact. His speech is normal. Recollection is normal orientation. LABORATORY DATA: White cell count is 15.1, it is now 12.5, hemoglobin 10, and platelets 183 with 78% neutrophils. Sodium 136, creatinine 0.68, and bilirubin 1.4 and 0.6. Transaminases normal. Alkaline phosphatase 67 and albumin 2.9. BNP 168. CRP 37. COVID negative. Vancomycin trough was 17. He had a duplex ultrasound of the right upper extremity because of right arm pain and there was no evidence of DVT. There is an echocardiogram with EF 50% to 55%, mildly dilated left atrium, moderate mitral regurg, mildly thickened trileaflet aortic valve, moderate tricuspid regurgitation, and there is a chest x-ray with no abnormal findings. There was a MRI of the foot, which showed abnormal T2 hyperintensity with enhancement in mid foot tarsal bones and loculated peripheral enhancing fluid collections surrounding the midfoot region and cellulitis. 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 DISCUSSION: We will have to treat this aggressively in view of the depth of involvement the associated Charcot. He does have good vascular supply. We will wait for the final identification of the organisms and then define if the treatment is going to be oral or IV. Job ID: [id number]
[2019-10-26] MEDS: HYDROcodone/Acetaminophen 10/325 mg Tablet PO SCH ×5 (00:23→23:55)
[2019-10-26 01:13] LABS: Vancomycin, Trough 24.3 ug/mL
[2019-10-26] MEDS: Vancomycin HCl 1.25 GM in Sodium Chloride 0.9% 250 ML 250 ML IVPB SCH ×3 (04:25→20:51)
[2019-10-26 04:52] LABS: ALT (SGPT) 26 U/L (8-55); AST (SGOT) 22 U/L (5-34); Albumin 2.8 g/dL (3.5-5.0); Alkaline Phosphatase 83 U/L (40-110); Anion Gap 14 mmol/L (10-20); BUN (Urea Nitrogen) 17 mg/dL (8.4-25.7); Bilirubin, Total 0.5 mg/dL (0.2-1.2); Calc. Creatinine Clearance 169 mL/min (70-130); Calcium 8.2 mg/dL (7.8-10.44); Carbon Dioxide 23 mmol/L (22-29); Chloride 106 mmol/L (98-107); Estimated GFR-MDRD Greater than 90; Globulin 3.3 g/dL (2.4-3.5); Glucose 83 mg/dL (70-105); Potassium 3.9 mmol/L (3.5-5.1); Protein, Total 6.1 g/dL (6.0-8.3); Sodium 139 mmol/L (136-145)
--- NOTE | 2019-10-26 05:35 | PDOC.FM ---
- Subjective Subjective: Patient complains of right arm pain that has mildly improved since yesterday. He notes tenderness to touch but denies erythema and warmth. No left foot pain. He denies headache, vision changes, chest pain, SOB, nausea, abdominal pain and edema. - Objective MAR Reviewed: Yes Vital Signs & Weight: Vital Signs (12 hours) Temp Pulse Resp BP BP BP Pulse Ox 10/26/19 04:00 123/80 93 L 10/26/19 03:41 98.1 F 63 20 123/80 93 L 10/26/19 00:00 121/79 10/25/19 23:45 98.4 F 69 20 121/79 95 10/25/19 20:00 128/85 10/25/19 19:55 98.3 F 67 14 128/85 95 Weight Admit Weight 102.149 kg Weight 102.149 kg Most Recent Monitor Data Heart Rate from ECG 59 NIBP 133/82 NIBP BP-Mean 99 Respiration from ECG 25 SpO2 93 I&O: 10/24/19 10/25/19 10/26/19 06:59 06:59 06:59 Intake Total 2260 4760 240 Output Total 625 2425 200 Balance 1635 2335 40 Result Diagrams: 10/26/19 04:09 10/26/19 04:09 Phys Exam - Physical Examination Constitutional: NAD HEENT: moist MMs, sclera anicteric Neck: supple, full ROM Respiratory: no wheezing, clear to auscultation bilateral Cardiovascular: no significant murmur, irregular Irregularly irregular Gastrointestinal: soft, non-tender Musculoskeletal: pulses present, edema present (1+ pitting edema) 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 Left foot wrapped in gauze. Able to move toes No erythema or edema noted beyond gauze. Right arm - exquisite tenderness Neurological: non-focal, moves all 4 limbs Psychiatric: normal affect, A&O x 3 Skin: no rash, cap refill <2 seconds Dx/Plan - Plan Plan: This is a 54M who presented to the ED with R arm pain and L sided CP Sepsis 2/2 left foot abscess s/p I&D - Hx charot arthropathy. L foot xray showed severe soft tissue swelling of midfoot and neuropathic osteoarthropathy. - L foot MRI showed suspicion for periarticular abscess. Could not r/o osteo. - Met SIRS criteria in ED: tachycardic, tachypneic, WBC of 15.1 - Lactic acid: 2.8 -> 1.4 - Vanc and Cefepime started 10/21 - Underwent I&D on 10/[address] Jackson who found purulence in joint space, concerning for osteomyelitis - Dr. Lawson consulted, appreciate recs Will evaluate antibiotic regimen after blood and wound culture final result - PT/OT/post-acute care/CM consulted d/t to severity of Charcot foot - Continue [place] 10mg q6h with morphine 2mg q4h for break through pain Paroxysmal afib - Hx of paroxysmal afib, RVR likely 2/2 to sepsis - Received 2x 5mg IV push of dilt in ED followed by dilt gtt - Dilt gtt discontinued 10/22. Now PO - Echo showed EF 50-55% with moderate tricuspid/mitral regurg and mildly dilated LA - Consulted cards (Dr. Maldonado), appreciate recs Recommended continued PO diltiazem, ASA, PPI Will evaluate patient outpatient for Afib ablation with possible EP referral R arm pain - Unclear etiology. Xray normal. US negative for DVT. - Ortho consulted, appreciate recs. Believe pain could possibly due to nerve palsy - Exquisite tenderness could indicate gout presentation. Will administered colchicine for 2 doses Alcohol Use Disorder - Reports drinking scotch daily - Denies any history of withdrawal signs/symptoms - ASE protocol in place PCP: [facility] PPx: Lovenox Diet: NPO Code: Full Dispo: home pending culture results with adequate antibiotic coverage Addendum - Attending - Attending Attestation Date/Time: 10/26/19 8213 I personally evaluated the patient and discussed the management with Dr. Alvarez. I agree with the History, Examination, Assessment and Plan documented above with any addition or exceptions noted below. Patient remains on antibiotics. Dr. Lawson is awaiting final cultures to determine long-term antibiotic course. Pt denies pain from the foot. He is complaining of pain in the right hand/wrist/forearm that is tender to light tough. Pulses palpable. Previous XR did not suggest infection. Consideration for possible gout, will give trial of colchicine. Continue pain control.
[2019-10-26 05:37] LABS: Band 9 % (5-11); Eosinophils 2 % (0-10); Hemoglobin 12.6 g/dL (14.0-18.0); Lymphocytes 15 % (21-51); MDiff Complete? YES; Macrocytosis SLIGHT = 6-15 cells (100X) (0-5/hpf); Mean Corpuscular HGB CONC 31.8 g/dL (32.0-36.0); Mean Corpuscular Hemoglobin 32.2 pg (27.0-31.0); Mean Platelet Volume 8.7 fL (7.4-10.4); Monocytes 9 % (0-10); Platelet Count 297 thou/uL (130-400); Platelet Morphology Comment Appears Adequate; Polychromasia SLIGHT = 2-3 cells (100X) (0-2/hpf); RBC Distribution Width 12.7 % (11.5-14.5); Red Blood Cell (RBC) Count 3.91 mill/uL (4.70-6.10); White Blood Cell (WBC) Count 12.3 thou/uL (4.8-10.8)
[2019-10-26] MEDS: Cefepime 2 GM in Sodium Chloride 0.9% 100 ML IVPB SCH ×4 (06:36→23:53)
[2019-10-26] MEDS: Aspirin 325 MG TAB PO SCH (09:34)
[2019-10-26] MEDS: Thiamine 100 MG TAB PO SCH (09:34)
[2019-10-26] MEDS: Enoxaparin Sodium 40 MG/0.4 ML SYRINGE SC SCH (09:34)
[2019-10-26] MEDS: Diltiazem HCl SR 60 mg Capsule PO SCH ×2 (09:34→20:55)
--- NOTE | 2019-10-26 13:56 | EKG ---
Test Reason : Blood Pressure : / mmHG Vent. Rate : 177 BPM Atrial Rate : 178 BPM P-R Int : 000 ms QRS Dur : 128 ms QT Int : 252 ms P-R-T Axes : 000 059 -45 degrees QTc Int : 432 ms Atrial fibrillation with rapid ventricular response Right bundle branch block Abnormal ECG Confirmed by RITA Dodge, CHANDLER ([id number]), mapping editor ZENY RAMOS ([id number]) on 10/26/2019 1:56:37 PM Referred By: Confirmed By:CHANDLER SALINAS M.D.
[2019-10-26] MEDS ORDERED: Colchicine 0.6 MG TAB PO SCH (22:15)
[2019-10-27] MEDS: Vancomycin HCl 1.25 GM in Sodium Chloride 0.9% 250 ML 250 ML IVPB SCH ×3 (04:33→20:49)
[2019-10-27 04:43] LABS: Vancomycin, Trough 15.7 ug/mL
[2019-10-27 04:47] LABS: ALT (SGPT) 24 U/L (8-55); AST (SGOT) 18 U/L (5-34); Albumin 2.9 g/dL (3.5-5.0); Alkaline Phosphatase 76 U/L (40-110); Anion Gap 12 mmol/L (10-20); BUN (Urea Nitrogen) 12 mg/dL (8.4-25.7); Bilirubin, Total 1.1 mg/dL (0.2-1.2); Calc. Creatinine Clearance 183 mL/min (70-130); Calcium 8.6 mg/dL (7.8-10.44); Carbon Dioxide 25 mmol/L (22-29); Chloride 102 mmol/L (98-107); Estimated GFR-MDRD Greater than 90; Globulin 3.3 g/dL (2.4-3.5); Glucose 101 mg/dL (70-105); Potassium 4.1 mmol/L (3.5-5.1); Protein, Total 6.2 g/dL (6.0-8.3); Sodium 135 mmol/L (136-145)
[2019-10-27 04:53] LABS: Band 7 % (5-11); Eosinophils 4 % (0-10); Hemoglobin 13.2 g/dL (14.0-18.0); Lymphocytes 12 % (21-51); MDiff Complete? YES; Mean Corpuscular HGB CONC 34.2 g/dL (32.0-36.0); Mean Corpuscular Hemoglobin 34.3 pg (27.0-31.0); Mean Platelet Volume 8.3 fL (7.4-10.4); Monocytes 4 % (0-10); Myelocyte 3 % (0-0); Platelet Count 339 thou/uL (130-400); RBC Distribution Width 12.4 % (11.5-14.5); Red Blood Cell (RBC) Count 3.86 mill/uL (4.70-6.10); White Blood Cell (WBC) Count 12.3 thou/uL (4.8-10.8)
--- NOTE | 2019-10-27 05:31 | PDOC.FM ---
- Subjective Subjective: The patient says his right arm pain is much improved since receiving colchicine yesterday. He says he is now able to touch his arm and move it without exacerbation of pain. He denies right foot pain. He also denies headache, vision changes, chest pain, SOB, nausea, abdominal pain and lower extremity edema. - Objective MAR Reviewed: Yes Vital Signs & Weight: Vital Signs (12 hours) Temp Pulse Resp BP Pulse Ox 10/27/19 00:28 93 L 10/26/19 20:25 99.4 F 81 14 154/86 H 93 L Weight Admit Weight 102.149 kg Weight 105.687 kg Most Recent Monitor Data Heart Rate from ECG 59 NIBP 133/82 NIBP BP-Mean 99 Respiration from ECG 25 SpO2 93 I&O: 10/25/19 10/26/19 10/27/19 06:59 06:59 06:59 Intake Total 4760 540 1400 Output Total 2425 860 1050 Balance 2335 -320 350 Result Diagrams: 10/27/19 04:03 10/27/19 04:03 Phys Exam - Physical Examination Constitutional: NAD HEENT: moist MMs, sclera anicteric Neck: supple, full ROM Respiratory: no wheezing, clear to auscultation bilateral Cardiovascular: RRR, no significant murmur Gastrointestinal: soft, non-tender, positive bowel sounds Musculoskeletal: pulses present, edema present (2+ pitting edema up to mid left valle) No right arm tenderness. No left leg tenderness. Able to move left toes. Full ROM to right arm. Neurological: non-focal, moves all 4 limbs Lymphatic: no nodes Psychiatric: normal affect, A&O x 3 Skin: no rash, cap refill <2 seconds Deviation from normal: No erythema or redness to right arm or left leg Dx/Plan - Plan Plan: This is a 54M who presented to the ED with R arm pain and L sided CP Sepsis, resolved 2/2 left foot abscess s/p I&D Left charot arthropathy - L foot xray showed severe soft tissue swelling of midfoot and neuropathic osteoarthropathy. - L foot MRI showed suspicion for periarticular abscess. Could not r/o osteo. - Met SIRS criteria in ED with tachycardic, tachypneic, WBC of 15.1. Lactic acid : 2.8 -> 1.4 - Vanc and Cefepime started 10/21 - Underwent I&D on 10/[address] Jackson who found purulence in joint space, concerning for osteomyelitis - Dr. Lawson consulted. Will assess long-term antibiotic regimen after blood and wound culture final result at 72 hours - PT/OT/post-acute care/CM consulted d/t to severity of Charcot foot - Continue [place] 10mg q6h with morphine 2mg q4h for break through pain Paroxysmal afib - Hx of paroxysmal afib, RVR likely 2/2 to sepsis - Received 2x 5mg IV push of dilt in ED followed by dilt gtt. Dilt gtt discontinued 10/22. Now PO - Echo showed EF 50-55% with moderate tricuspid/mitral regurg and mildly dilated LA - Consulted cards (Dr. Maldonado), appreciate recs Recommended continued PO diltiazem, ASA, PPI Will evaluate patient outpatient for Afib ablation with possible EP referral Elevated BP BP ranged 150-160 systolic. -Start lisinopril 10mg daily -Continue to monitor R arm pain likely 2/2 gout - Ortho consulted - Xray normal. US negative for DVT. - Concern for atypical gout presentation given exquisite tenderness. Administered colchicine on 10/25 with significant symptom improvement. - Continue colchicine 0.6mg today Alcohol Use Disorder - Reports drinking scotch daily - Denies any history of withdrawal signs/symptoms - ASE protocol in place - B12 elevated at 1254. Folate low 5.7. Started folic acid/B12 supplement daily. PCP: [facility] PPx: Lovenox Code: Full Dispo: home pending culture results with adequate antibiotic coverage Addendum - Attending - Attending Attestation Date/Time: 10/27/19 1310 I personally evaluated the patient and discussed the management with Dr. Alvarez. I agree with the History, Examination, Assessment and Plan documented above with any addition or exceptions noted below. The patient has noted significant improvement in the right arm pain with the colchicine. Will give 0.6 mg dose today. Continue antibiotics. Awaiting final cultures for long-term antibiotics. Pt remains hypertensive, will add lisinopril.
[2019-10-27] MEDS: HYDROcodone/Acetaminophen 10/325 mg Tablet PO SCH ×3 (05:42→17:04)
[2019-10-27] MEDS: Cefepime 2 GM in Sodium Chloride 0.9% 100 ML IVPB SCH ×2 (09:40→17:06)
[2019-10-27] MEDS: Diltiazem HCl SR 60 mg Capsule PO SCH ×2 (09:41→20:41)
[2019-10-27] MEDS: Enoxaparin Sodium 40 MG/0.4 ML SYRINGE SC SCH (09:41)
[2019-10-27] MEDS: Folic Acid/Vit B Comp W-C PO SCH (09:41)
[2019-10-27] MEDS: Thiamine 100 MG TAB PO SCH (09:41)
[2019-10-27] MEDS: Aspirin 325 MG TAB PO SCH (09:41)
[2019-10-27] MEDS: Lisinopril 5 MG TAB PO SCH (09:41)
[2019-10-27] MEDS: Colchicine 0.6 MG TAB PO SCH ×2 (09:41→20:49)
--- NOTE | 2019-10-27 16:46 | PRG ---
DATE OF SERVICE: 10/27/2019 SUBJECTIVE: Mr. Roy has no pain in the right foot. His gout related pain in the upper extremities improved. He denies cough, chest pain, or dyspnea. No abdominal pain. No diarrhea. OBJECTIVE: VITAL SIGNS: Show T-max 99.3, BP 130/80, heart rate 68, respiratory rate 20, O2 saturation 96%. HEART: Normal. LUNGS: Normal. ABDOMEN: Soft and nontender. EXTREMITIES: Some edema in lower extremities. The wound with 2 approximating stitches noted some serous drainage. Erythema is less. LABORATORY DATA: Sodium 135, creatinine 0.69. White cell count is still high at 12.3, hemoglobin 13, platelets 339 with 12% lymphocytes. Microbiology, yet no growth reported. Blood cultures or the sample from the foot swab, no organisms seen thus far. 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 We will switch him to meropenem to get some anaerobic coverage as well and may be able to discontinue vancomycin if the final cultures do not yield Staphylococcus aureus. We may have to make discharge planning without the benefit of microbiology information. Job ID: [id number]
[2019-10-27] MEDS: MEROPENEM 1 GM/50 ML 1 GM in Premix Bag 1 BAG IVPB SCH (18:44)
[2019-10-28] MEDS: HYDROcodone/Acetaminophen 10/325 mg Tablet PO SCH ×4 (00:22→17:29)
[2019-10-28] MEDS: MEROPENEM 1 GM/50 ML 1 GM in Premix Bag 1 BAG IVPB SCH ×3 (01:53→17:29)
[2019-10-28] MEDS: Vancomycin HCl 1.25 GM in Sodium Chloride 0.9% 250 ML 250 ML IVPB SCH ×3 (03:30→20:59)
[2019-10-28 03:57] LABS: Vancomycin, Trough 15.7 ug/mL
[2019-10-28 04:00] LABS: ALT (SGPT) 30 U/L (8-55); AST (SGOT) 27 U/L (5-34); Alkaline Phosphatase 86 U/L (40-110); Anion Gap 12 mmol/L (10-20); BUN (Urea Nitrogen) 13 mg/dL (8.4-25.7); Bilirubin, Total 0.9 mg/dL (0.2-1.2); Calc. Creatinine Clearance 175 mL/min (70-130); Calcium 8.7 mg/dL (7.8-10.44); Carbon Dioxide 25 mmol/L (22-29); Chloride 101 mmol/L (98-107); Estimated GFR-MDRD Greater than 90; Globulin 3.5 g/dL (2.4-3.5); Glucose 126 mg/dL (70-105); Potassium 4.2 mmol/L (3.5-5.1); Protein, Total 6.5 g/dL (6.0-8.3); Sodium 134 mmol/L (136-145)
[2019-10-28 04:12] LABS: Band 11 % (5-11); Hemoglobin 13.7 g/dL (14.0-18.0); Lymphocytes 7 % (21-51); MDiff Complete? YES; Mean Corpuscular HGB CONC 32.6 g/dL (32.0-36.0); Mean Corpuscular Hemoglobin 32.9 pg (27.0-31.0); Mean Platelet Volume 8.4 fL (7.4-10.4); Metamyelocyte 1 % (0-0); Monocytes 9 % (0-10); Myelocyte 3 % (0-0); Platelet Count 396 thou/uL (130-400); RBC Distribution Width 12.6 % (11.5-14.5); Red Blood Cell (RBC) Count 4.16 mill/uL (4.70-6.10); White Blood Cell (WBC) Count 12.9 thou/uL (4.8-10.8)
--- NOTE | 2019-10-28 05:40 | PDOC.FM ---
- Subjective Subjective: Mr. Roy is doing well this morning. He states the pain in his R hand is better but not resolved, rating the pain at 5/10. He says the bandages on his foot have been getting changed but no one has told him anything about how it's looking. He is not complaining of pain there right now. He has continued having BMs. He den ies subjective fever, chills, N/V, D. - Objective Vital Signs & Weight: Vital Signs (12 hours) Temp Pulse Resp BP Pulse Ox 10/28/19 04:33 93 L 10/28/19 03:24 98.9 F 66 18 146/81 H 93 L 10/27/19 20:40 98.3 F 66 16 159/91 H 92 L Weight Admit Weight 102.149 kg Weight 101.264 kg Most Recent Monitor Data Heart Rate from ECG 59 NIBP 133/82 NIBP BP-Mean 99 Respiration from ECG 25 SpO2 93 I&O: 10/26/19 10/27/19 10/28/19 06:59 06:59 06:59 Intake Total 540 1400 1350 Output Total 860 1050 1391 Balance -320 350 -41 Result Diagrams: 10/28/19 02:47 10/28/19 02:47 Phys Exam - Physical Examination Constitutional: NAD (Sitting up comfortably using his phone) Neck: supple, full ROM Respiratory: no wheezing, no rales, clear to auscultation bilateral Cardiovascular: RRR, no significant murmur (Telemetry has shown occasional A. flutter, PACs, and PVCs) Musculoskeletal: pulses present, edema present (In L LE proximal to ankle to about sharon-tibia. Minimally pitting. Edema of R hand/wrist.) Neurological: non-focal, moves all 4 limbs Psychiatric: normal affect, A&O x 3 Skin: no rash -: No erythema of R hand/wrist Dx/Plan - Plan Plan: This is a 54M who presented to the ED with R arm pain and L sided CP Afib with RVR - Likely 2/2 to sepsis therefore not anticoagulating currently - Received 2x 5mg IV push of dilt in ED followed by dilt gtt Initially had low BP response that improved after 2L NS - Dilt gtt discontinued 10/22. Now PO. Admitting to IMCU. If BP continues to be a problem, will need to consider amio If hemodynamically unstable, consider defib - Consulted cards (Dr. Maldonado), appreciate recs Recommended continued PO Diltiazem Is considering long-term anticoagulation depending on if AFib resolves HR continues to be irregular. Feels comfortable sending him to floor on CCB with outpt f/u - ASA as anticoagulation therapy d/t CHADSVASC score of 1. - Echo showed EF 50-55% with moderate tricuspid/mitral regurg and mildly dilated LA - BNP 168 - Plan for discharge today Sepsis - Source: likely cellulitis vs. septic joint vs. gout - SIRS criteria: tachycardic, tachypneic, WBC of 15.1 - Lactic acid: 2.8 > 1.4 - Vanc and Cefepime started 10/21 - ESR 68 - CRP37.5 - Uric acid nml - BCx neg - Foot xray not definitive. Showed severe soft tissue swelling of midfoot and neuropathic osteoarthropathy - L foot MRI showed suspicion for periarticular abscess. Could not r/o osteo - Consulted ortho. Dr. Paredes recommended continuation of abx and I&D of L foot on 10/23 Found purulence in joint space, concerning for osteomyelitis. Packed wound Comfortable sending pt home with f/u in 10-14 days - Will start [place] 10mg q6h with morphine 2mg q4h for break through pain - Dr. Lawson consulted, changed Cefepime to Meropenem - Foot Cx (2) positive only for skin jennifer - Will consult PT/OT/post-acute care/CM d/t to severity of Charcot foot. No placement necessary per PT/OT - Dr. Jackson comfortable with sending him out of IMCU. Started thiamine. - CMP showed hyponatremia, hypocalcemia, and anemia today, see below - Plan for discharge today R arm pain - Unclear etiology - Burning, sharp, deep and superficial pain worst at wrist but extending to tips of fingers and proximal to elbow - No erythema/edema/deformity - R wrist xray normal - Ortho consulted, appreciate recs - Consider MRI - Dr. Maldonado recommended R UE U/S to r/o venous causes despite what would be an atypical presentation for it U/S unremarkable - Pain and function improving. Continue to monitor - Given Colchicine over the weekend which has helped. Suspect possible atypical gout presentation. Continue colchicine. Hyperglycemia - Glucose of 242 on arrival - Denies history of DM - A1C 5.2 - Monitor BGs. Alcohol Use Disorder - Reports drinking scotch daily - Denies any history of withdrawal signs/symptoms - ASE protocol in place - No withdrawal sxs Hyponatremia - Na 125 on 10/24, down from 133 yesterday - Unsure if related to LR in addition to good PO diet - IVF discontinued - Will order noon BMP and daily BMPs to monitor - Resolved on f/u CMPs. Suspect sample drawn proximal to line Hypocalcemia - Ca 6.0 on CMP. - Corrected Ca 7.5, borderline normal - D/c IVF and monitor. - Resolved on f/u CMPs. Suspect sample drawn proximal to line Anemia - Hb 10.6 today, down from 15 - Suspect this is d/t dilution 2/2 IVF - Fluids discontinued - Will continue to monitor - Resolved on f/u CMPs. Suspect sample drawn proximal to line PCP: [facility] PPx: Lovenox Diet: NPO Code: Full Dispo: will admit to IMCU; LOS <24hrs
[2019-10-28] MEDS: Enoxaparin Sodium 40 MG/0.4 ML SYRINGE SC SCH (08:57)
[2019-10-28] MEDS: Folic Acid/Vit B Comp W-C PO SCH (08:58)
[2019-10-28] MEDS: Colchicine 0.6 MG TAB PO SCH ×2 (08:58→21:00)
[2019-10-28] MEDS: Diltiazem HCl SR 60 mg Capsule PO SCH ×2 (08:58→21:00)
[2019-10-28] MEDS: Aspirin 325 MG TAB PO SCH (08:58)
[2019-10-28] MEDS: Lisinopril 5 MG TAB PO SCH (08:58)
[2019-10-28] MEDS: Thiamine 100 MG TAB PO SCH (08:59)
--- NOTE | 2019-10-28 14:35 | PRG ---
DATE OF SERVICE: 10/28/2019 SUBJECTIVE: Mr. Roy' rhythm has been stable except for yesterday when he had a short burst of atrial fibrillation. This was self-limiting. No other complaints or issues noted. OBJECTIVE: VITAL SIGNS: Blood pressure 135/85, pulse 63, temperature 98.5. LUNGS: Clear to auscultation. HEART: Regular rate and rhythm. ABDOMEN: Soft, nontender, nondistended. EXTREMITIES: No significant change. IMPRESSION: 1. Paroxysmal atrial fibrillation. 2. Alcohol abuse. 3. Cellulitis. 4. Charcot foot. RECOMMENDATIONS: Given that Mr. Roy continues to have intermittent episodes of atrial flutter/atrial fibrillation, we would recommend short-term anticoagulation therapy. We would recommend 1 mg/kg subcu q.12 of Lovenox while in the hospital in case other procedure is needed. We then transition to Eliquis 5 mg one p.o. b.i.d. Recommend EP consultation for outpatient followup for a possible atrial flutter ablation. At that point, he would only require anticoagulation therapy for one month. Otherwise, he appears stable and doing well. Job ID: [id number]
--- NOTE | 2019-10-28 15:41 | SPC ---
Sonographic guided left upper extremity PICC placement HISTORY: Osteomyelitis. FINDINGS: After explaining the procedure and answering all questions, the left upper extremity was pr epped and draped in usual sterile fashion. Sterile technique, buffered local anesthesia, sonographic guidance, and a 22-gauge needle were used t o carefully access the left cephalic vein. Standard technique was used to place the tip of a 5 [place] single lumen PICC so that the tip lies at the level of the cavoatrial junction. Catheter was flushed and secured externally. Patient tolerated the procedure well and was returned in unchanged condition. Fluoroscopy time 0 seconds. IMPRESSION : Left upper extremity PICC is ready for use.
[2019-10-28 16:25] LABS: Hemoglobin 13.3 g/dL (14.0-18.0); Platelet Count 399 thou/uL (130-400)
[2019-10-28 17:05] LABS: Calc. Creatinine Clearance 173 mL/min (70-130); Estimated GFR-MDRD Greater than 90
--- NOTE | 2019-10-28 19:06 | PRG ---
DATE OF SERVICE: 10/28/2019 Mr. Roy has several medical problems, which are currently stable. He is on some diltiazem for his atrial fibrillation. His foot infection related to Charcot foot is under treatment broad-spectrum antibiotics and he has been seen by the infectious disease person. Job ID: [id number]
[2019-10-28] MEDS: Enoxaparin Sodium 100 MG/ML SYRINGE SC SCH (20:59)
[2019-10-29] MEDS: HYDROcodone/Acetaminophen 10/325 mg Tablet PO SCH ×4 (00:14→18:00)
[2019-10-29] MEDS: MEROPENEM 1 GM/50 ML 1 GM in Premix Bag 1 BAG IVPB SCH ×4 (02:34→21:56)
[2019-10-29] MEDS: Vancomycin HCl 1.25 GM in Sodium Chloride 0.9% 250 ML 250 ML IVPB SCH ×3 (04:30→21:45)
[2019-10-29 05:33] LABS: Band 7 % (5-11); Eosinophils 3 % (0-10); Hemoglobin 13.3 g/dL (14.0-18.0); Lymphocytes 15 % (21-51); MDiff Complete? YES; Mean Corpuscular HGB CONC 33.7 g/dL (32.0-36.0); Mean Corpuscular Hemoglobin 34.4 pg (27.0-31.0); Monocytes 5 % (0-10); Myelocyte 3 % (0-0); Platelet Count 400 thou/uL (130-400); RBC Distribution Width 12.3 % (11.5-14.5); Red Blood Cell (RBC) Count 3.87 mill/uL (4.70-6.10); White Blood Cell (WBC) Count 11.7 thou/uL (4.8-10.8)
[2019-10-29 05:36] LABS: ALT (SGPT) 30 U/L (8-55); AST (SGOT) 25 U/L (5-34); Albumin 2.9 g/dL (3.5-5.0); Alkaline Phosphatase 98 U/L (40-110); Anion Gap 11 mmol/L (10-20); BUN (Urea Nitrogen) 12 mg/dL (8.4-25.7); Bilirubin, Total 0.6 mg/dL (0.2-1.2); Calc. Creatinine Clearance 173 mL/min (70-130); Calcium 8.7 mg/dL (7.8-10.44); Carbon Dioxide 29 mmol/L (22-29); Chloride 99 mmol/L (98-107); Estimated GFR-MDRD Greater than 90; Globulin 3.7 g/dL (2.4-3.5); Glucose 98 mg/dL (70-105); Potassium 4.1 mmol/L (3.5-5.1); Protein, Total 6.6 g/dL (6.0-8.3); Sodium 135 mmol/L (136-145)
--- NOTE | 2019-10-29 05:56 | PDOC.FM ---
- Subjective Subjective: Eddie is doing well this morning but continues to complain of R arm pain such that he can hardly use it. He says the pain is half what it used to be but is still significant enough to limit his functionality. There is still no edema/erythema/deformity. He is not complaining of L foot pain. He denies dyspnea/CP/V/D. His last BM was yesterday and was normal. - Objective Vital Signs & Weight: Vital Signs (12 hours) Temp Pulse Resp BP Pulse Ox 10/29/19 04:33 98.0 F 59 L 18 158/84 H 93 L 10/28/19 20:58 98.9 F 67 20 174/87 H 91 L Weight Admit Weight 102.149 kg Weight 101.264 kg Most Recent Monitor Data Heart Rate from ECG 59 NIBP 133/82 NIBP BP-Mean 99 Respiration from ECG 25 SpO2 93 I&O: 10/27/19 10/28/19 10/29/19 06:59 06:59 06:59 Intake Total 1400 2430 480 Output Total 1050 2851 Balance 350 -421 480 Result Diagrams: 10/29/19 04:28 10/29/19 04:28 Phys Exam - Physical Examination Constitutional: NAD (Sitting up comfortably, watching tv with his daughter in the room) HEENT: moist MMs Neck: supple Respiratory: no wheezing, no rales, clear to auscultation bilateral Cardiovascular: RRR, no significant murmur Musculoskeletal: no edema, pulses present No erythema/edema/deformity of R hand Neurological: non-focal, moves all 4 limbs Psychiatric: normal affect, A&O x 3 Skin: no rash -: L foot wrapped Dx/Plan (1) Afib Code(s): I48.91 - UNSPECIFIED ATRIAL FIBRILLATION Status: Acute (2) Sepsis Code(s): A41.9 - SEPSIS, UNSPECIFIED ORGANISM Status: Acute (3) Osteomyelitis Code(s): M86.9 - OSTEOMYELITIS, UNSPECIFIED Status: Acute (4) Hyperglycemia Code(s): R73.9 - HYPERGLYCEMIA, UNSPECIFIED Status: Acute (5) Right arm pain Code(s): M79.601 - PAIN IN RIGHT ARM Status: Acute (6) Alcohol abuse, daily use Code(s): F10.10 - ALCOHOL ABUSE, UNCOMPLICATED Status: Chronic (7) Charcot's joint of foot, non-diabetic Code(s): M14.679 - CHARCOT'S JOINT, UNSPECIFIED ANKLE AND FOOT Status: Chronic - Plan Plan: This is a 54M who presented to the ED with R arm pain and L sided CP Afib with RVR - Likely 2/2 to sepsis therefore not anticoagulating currently - Received 2x 5mg IV push of dilt in ED followed by dilt gtt Initially had low BP response that improved after 2L NS - Dilt gtt discontinued 10/22. Now PO. Admitting to IMCU. If BP continues to be a problem, will need to consider amio If hemodynamically unstable, consider defib - Consulted cards (Dr. Maldonado), appreciate recs Recommended continued PO Diltiazem Is considering long-term anticoagulation depending on if AFib resolves HR continues to be irregular. Feels comfortable sending him to floor on CCB with outpt f/u 10/27 started Lovenox d/t continued arrhythmias. Recommends sending home on Eliquis 5mg BID. Recommends OP EP consult for possible ablation - ASA as anticoagulation therapy d/t CHADSVASC score of 1. - Echo showed EF 50-55% with moderate tricuspid/mitral regurg and mildly dilated LA - BNP 168 - Plan for discharge today Sepsis - Source: likely cellulitis vs. septic joint vs. gout - SIRS criteria: tachycardic, tachypneic, WBC of 15.1 - Lactic acid: 2.8 > 1.4 - Vanc and Cefepime started 10/21 - ESR 68 - CRP37.5 - Uric acid nml - BCx neg - Foot xray not definitive. Showed severe soft tissue swelling of midfoot and neuropathic osteoarthropathy - L foot MRI showed suspicion for periarticular abscess. Could not r/o osteo - Consulted ortho. Dr. Paredes recommended continuation of abx and I&D of L foot on 10/23 Found purulence in joint space, concerning for osteomyelitis. Packed wound Comfortable sending pt home with f/u in 10-14 days - Will start [place] 10mg q6h with morphine 2mg q4h for break through pain - Dr. Lawson consulted, changed Cefepime to Meropenem PICC line placed 10/27 CM in the process of setting up OP IV abx tx with Dr. Lawson' office - Foot Cx (2) positive only for skin jennifer - Will consult PT/OT/post-acute care/CM d/t to severity of Charcot foot. No placement necessary per PT/OT - Dr. Jackson comfortable with sending him out of IMCU. Started thiamine. - Plan for discharge today R arm pain - Unclear etiology - Burning, sharp, deep and superficial pain worst at wrist but extending to tips of fingers and proximal to elbow - No erythema/edema/deformity - R wrist xray normal - Ortho consulted, appreciate recs - Consider MRI - Dr. Maldonado recommended R UE U/S to r/o venous causes despite what would be an atypical presentation for it U/S unremarkable - Pain and function improving. Continue to monitor - Given Colchicine over the weekend which has helped. Suspect possible atypical gout presentation. Continue colchicine. Continues to complain of significant R arm pain, now just distal to shoulder Charcot foot - b/l 2/2 neuropathy s/p back surgery. - Has seen a unit aide outpt for management Hyperglycemia - Glucose of 242 on arrival - Denies history of DM - A1C 5.2 - Monitor BGs. Alcohol Use Disorder - Reports drinking scotch daily - Denies any history of withdrawal signs/symptoms - ASE protocol in place - No withdrawal sxs PCP: [facility] PPx: Lovenox Diet: NPO Code: Full Dispo: will admit to tele; LOS <24hrs
--- NOTE | 2019-10-29 08:40 | PRG ---
DATE OF SERVICE: 10/29/2019 SUBJECTIVE: Mr. Roy is doing well. No current complaints except for arm pain. His heart rate has been stable. OBJECTIVE: VITAL SIGNS: Heart rate 69, blood pressure 158/84, respirations 18. LUNGS: Clear to auscultation. HEART: Regular rate and rhythm. ABDOMEN: Soft, nontender, nondistended. EXTREMITIES: No edema. IMPRESSION: 1. Paroxysmal atrial fibrillation. 2. Alcohol abuse. 3. Cellulitis. 4. Right arm pain. RECOMMENDATIONS: 1. Mr. Roy is currently doing well from a heart rate standpoint. 2. Plan is to transition from Lovenox to Eliquis once he is transitioning to home. 3. Switch Cardizem from 60 b.i.d. to 120 one p.o. q.a.m. 4. Continue lisinopril. 5. Antibiotic therapy per primary team. 6. Right arm pain evaluation per primary team. Job ID: [id number]
[2019-10-29] MEDS: Folic Acid/Vit B Comp W-C PO SCH (09:23)
[2019-10-29] MEDS: Colchicine 0.6 MG TAB PO SCH ×2 (09:23→21:45)
[2019-10-29] MEDS: Thiamine 100 MG TAB PO SCH (09:23)
[2019-10-29] MEDS: Lisinopril 5 MG TAB PO SCH (09:23)
[2019-10-29] MEDS: Aspirin 325 MG TAB PO SCH (09:23)
[2019-10-29] MEDS: Enoxaparin Sodium 100 MG/ML SYRINGE SC SCH ×2 (09:24→21:45)
[2019-10-29 09:37] LABS: Neutrophil 67 % (42-75)
[2019-10-29 10:58] LABS: Neutrophil 69 % (42-75)
[2019-10-29] MEDS ORDERED: Lisinopril 5 MG TAB PO SCH (11:15)
[2019-10-29] MEDS: Indomethacin 25 mg Capsule PO SCH ×2 (11:36→21:46)
--- NOTE | 2019-10-29 12:03 | PRG ---
DATE OF SERVICE: 10/29/2019 Job ID: [id number]
[2019-10-29 12:29] LABS: Neutrophil 70 % (42-75)
[2019-10-29 12:33] LABS: Neutrophil 65 % (42-75)
[2019-10-29 14:45] VITALS: BMI 29.4
[2019-10-30] MEDS: HYDROcodone/Acetaminophen 10/325 mg Tablet PO SCH ×4 (00:13→12:55)
[2019-10-30] MEDS: MEROPENEM 1 GM/50 ML 1 GM in Premix Bag 1 BAG IVPB SCH ×3 (00:56→09:49)
[2019-10-30] MEDS: Indomethacin 25 mg Capsule PO SCH ×2 (02:29→12:55)
[2019-10-30] MEDS ORDERED: Enoxaparin Sodium 100 MG/ML SYRINGE ONE (08:34)
[2019-10-30] MEDS ORDERED: Lisinopril 10 MG TAB ONE (08:34)
[2019-10-30] MEDS ORDERED: Aspirin 325 MG TAB ONE (08:34)
[2019-10-30] MEDS ORDERED: Folic Acid/Vit B Comp W-C ONE (08:34)
[2019-10-30] MEDS ORDERED: Thiamine 100 MG TAB ONE (08:34)
[2019-10-30] MEDS ORDERED: Meropenem 1 GM VIAL ONE (08:34)
[2019-10-30] MEDS ORDERED: HYDROcodone/Acetaminophen 10/325 mg Tablet ONE (08:34)
[2019-10-30] MEDS: Aspirin 325 MG TAB PO SCH ×2 (08:35→09:50)
[2019-10-30] MEDS: Folic Acid/Vit B Comp W-C PO SCH ×2 (08:35→09:50)
[2019-10-30] MEDS: Thiamine 100 MG TAB PO SCH ×2 (08:35→09:51)
[2019-10-30] MEDS: Enoxaparin Sodium 100 MG/ML SYRINGE SC SCH ×2 (08:35→09:50)
[2019-10-30] MEDS: Lisinopril 10 MG TAB PO SCH ×2 (08:35→09:50)
[2019-10-30] MEDS: Colchicine 0.6 MG TAB PO SCH ×2 (08:35→09:50)
[2019-10-30 08:39] LABS: ALT (SGPT) 35 U/L (8-55); AST (SGOT) 29 U/L (5-34); Albumin 3.1 g/dL (3.5-5.0); Alkaline Phosphatase 105 U/L (40-110); Anion Gap 10 mmol/L (10-20); BUN (Urea Nitrogen) 13 mg/dL (8.4-25.7); Bilirubin, Total 0.5 mg/dL (0.2-1.2); Calc. Creatinine Clearance 170 mL/min (70-130); Calcium 8.9 mg/dL (7.8-10.44); Carbon Dioxide 29 mmol/L (22-29); Chloride 102 mmol/L (98-107); Estimated GFR-MDRD Greater than 90; Globulin 3.9 g/dL (2.4-3.5); Glucose 122 mg/dL (70-105); Potassium 4.3 mmol/L (3.5-5.1); Sodium 137 mmol/L (136-145)
[2019-10-30 10:29] LABS: Hemoglobin 13.8 g/dL (14.0-18.0); Mean Corpuscular Hemoglobin 33.3 pg (27.0-31.0); Red Blood Cell (RBC) Count 4.13 mill/uL (4.70-6.10); White Blood Cell (WBC) Count 9.7 thou/uL (4.8-10.8)
[2019-10-30 10:30] LABS: Band 4 % (5-11); Lymphocytes 17 % (21-51); MDiff Complete? YES; Mean Corpuscular HGB CONC 32.7 g/dL (32.0-36.0); Mean Platelet Volume 8.1 fL (7.4-10.4); Neutrophil 65 % (42-75); Platelet Count 413 thou/uL (130-400); RBC Distribution Width 12.4 % (11.5-14.5)
[2019-10-30 10:31] LABS: Eosinophils 4 % (0-10); Monocytes 10 % (0-10)
--- NOTE | 2019-10-30 10:51 | PRG ---
DATE OF SERVICE: 10/30/2019 Mr. Roy says this morning his right arm feels back to near normal. He has much less pain. The swelling has greatly diminished. He will receive instruction on IV antibiotics at noon and thereafter will be discharged. I recommend keeping him on colchicine and indomethacin for the next 7 to 10 days. Job ID: [id number]
--- NOTE | 2019-10-30 10:57 | PDOC.FM ---
- Subjective Subjective: Mr. Roy is doing well this morning and states his R wrist pain has significantly improved, rating it at 3/10. He continues to deny much L foot pain. He feels he is ready to go home. [facility] is going to be stopping by ar ound noon to show family how to administer IV abx appropriately. Mr. Roy denies V/D/dyspnea/SOB/edema. - Objective Vital Signs & Weight: Weight Admit Weight 102.149 kg Weight 101.264 kg Most Recent Monitor Data Heart Rate from ECG 59 NIBP 133/82 NIBP BP-Mean 99 Respiration from ECG 25 SpO2 93 I&O: 10/29/19 10/30/19 10/31/19 06:59 06:59 06:59 Intake Total 1530 950 Output Total 1520 850 Balance 10 100 Result Diagrams: 10/30/19 04:45 10/30/19 03:30 Phys Exam - Physical Examination Constitutional: NAD Neck: supple, full ROM Respiratory: no wheezing, no rales, clear to auscultation bilateral Cardiovascular: RRR, no significant murmur Telemetry shows continued BBB and occasional VTach Musculoskeletal: no edema (In hands/ feet b/l), pulses present (Radial pulses b/l. dp pulses not checked this time) Neurological: non-focal, moves all 4 limbs Psychiatric: normal affect, A&O x 3 Skin: no rash Dx/Plan (1) Afib Code(s): I48.91 - UNSPECIFIED ATRIAL FIBRILLATION Status: Acute (2) Sepsis Code(s): A41.9 - SEPSIS, UNSPECIFIED ORGANISM Status: Acute (3) Osteomyelitis Code(s): M86.9 - OSTEOMYELITIS, UNSPECIFIED Status: Acute (4) Hyperglycemia Code(s): R73.9 - HYPERGLYCEMIA, UNSPECIFIED Status: Acute (5) Right arm pain Code(s): M79.601 - PAIN IN RIGHT ARM Status: Acute (6) Alcohol abuse, daily use Code(s): F10.10 - ALCOHOL ABUSE, UNCOMPLICATED Status: Chronic (7) Charcot's joint of foot, non-diabetic Code(s): M14.679 - CHARCOT'S JOINT, UNSPECIFIED ANKLE AND FOOT Status: Chronic - Plan Plan: This is a 54M who presented to the ED with R arm pain and L sided CP Afib with RVR - Likely 2/2 to sepsis therefore not anticoagulating currently - Received 2x 5mg IV push of dilt in ED followed by dilt gtt Initially had low BP response that improved after 2L NS - Dilt gtt discontinued 10/22. Now PO. Admitting to IMCU. If BP continues to be a problem, will need to consider amio If hemodynamically unstable, consider defib - Consulted cards (Dr. Maldonado), appreciate recs Recommended continued PO Diltiazem Is considering long-term anticoagulation depending on if AFib resolves HR continues to be irregular. Feels comfortable sending him to floor on CCB with outpt f/u 10/27 started Lovenox d/t continued arrhythmias. Recommends sending home on E liquis 5mg BID. Recommends OP EP consult for possible ablation Plan to send home on Eliquis, change Cardizem from 60mg BID to 120mg qd, continue Lisinopril - ASA as anticoagulation therapy d/t CHADSVASC score of 1. - Echo showed EF 50-55% with moderate tricuspid/mitral regurg and mildly dilated LA - BNP 168 - Plan for discharge today Sepsis - Source: likely cellulitis vs. septic joint vs. gout - SIRS criteria: tachycardic, tachypneic, WBC of 15.1 - Lactic acid: 2.8 > 1.4 - Vanc and Cefepime started 10/21 - ESR 68 - CRP37.5 - Uric acid nml - BCx neg - Foot xray not definitive. Showed severe soft tissue swelling of midfoot and neuropathic osteoarthropathy - L foot MRI showed suspicion for periarticular abscess. Could not r/o osteo - Consulted ortho. Dr. Paredes recommended continuation of abx and I&D of L foot on 10/23 Found purulence in joint space, concerning for osteomyelitis. Packed wound Comfortable sending pt home with f/u in 10-14 days - Will start Inkom 10mg q6h with morphine 2mg q4h for break through pain - Dr. Lawson consulted, changed Cefepime to Meropenem PICC line placed 10/27 OP IV abx set up with [facility]. Dapto 600mg qd + Invanz 1g qd - [facility] will show family how to administer IV abx today at noon - Foot Cx (2) positive only for skin jennifer - Will consult PT/OT/post-acute care/CM d/t to severity of Charcot foot. No placement necessary per PT/OT - Dr. Jackson comfortable with sending him out of IMCU. Started thiamine. - Family will be trained in wound care, as well - Plan for discharge today R arm pain - Unclear etiology - Burning, sharp, deep and superficial pain worst at wrist but extending to tips of fingers and proximal to elbow - No erythema/edema/deformity - R wrist xray normal - Ortho consulted, appreciate recs - Consider MRI - Dr. Maldonado recommended R UE U/S to r/o venous causes despite what would be an atypical presentation for it U/S unremarkable - Pain and function improving. Continue to monitor - Given Colchicine over the weekend which has helped. Suspect possible atypical gout presentation. Continue colchicine. Continues to complain of significant R arm pain, now just distal to shoulder - Started Indomethacin on 10/28. Pain has decreased to 3/10. - Send home on Colchicine qd and Indomethacin TID for another 10 days Charcot foot - b/l 2/2 neuropathy s/p back surgery. - Has seen a zoology technical officer outpt for management Hyperglycemia - Glucose of 242 on arrival - Denies history of DM - A1C 5.2 - Monitor BGs. Alcohol Use Disorder - Reports drinking scotch daily - Denies any history of withdrawal signs/symptoms - ASE protocol in place - No withdrawal sxs PCP: [facility] PPx: Lovenox Diet: NPO Code: Full Dispo: will admit to tele; LOS <24hrs
[2019-10-30 11:57] VITALS: BP 183/105; TEMP 98
[2019-10-30] MEDS ORDERED: DAPTOmycin 500 MG VIAL SLOW IVP SCH ×2 (12:00)
[2019-10-30] MEDS ORDERED: DAPTOmycin 500 MG in Sodium Chloride 0.9% 10 ML SLOW IVP SCH (12:00)
[2019-10-30 12:03] LABS: Vancomycin, Trough 8.5 ug/mL
[2019-10-30] MEDS ORDERED: Ertapenem 1 GM in Sodium Chloride 0.9% 100 ML IVPB SCH (14:00)
[2019-10-30] MEDS ORDERED: Apixaban 5 MG TAB PO SCH (21:00)
--- NOTE | 2019-10-31 06:37 | PRG ---
DATE OF SERVICE: 10/30/2019 SUBJECTIVE: Mr. Roy is doing well. No current complaints. He is feeling overall much better. He did have four beats of nonsustained VT on the cardiac monitor technician. OBJECTIVE: VITAL SIGNS: Blood pressure 120/70, pulse 80, respirations 20. LUNGS: Clear to auscultation. HEART: Regular rate and rhythm. ABDOMEN: Soft, nontender, nondistended. EXTREMITIES: No edema. IMPRESSION: 1. Atrial flutter. 2. Cellulitis. 3. Short run of nonsustained VT. Mr. Roy' LVEF estimated at 50% to 55%. He does have moderate mitral regurgitation present. We will change his calcium channel nicole to a beta nicole. Recommend a novel oral anticoagulation therapy as an outpatient. Plan is to follow up with Mr. Roy in 1 week. Otherwise, I have no further recommendations. Job ID: [id number]
--- NOTE | 2019-10-31 22:10 | PQF ---
CLINICAL DOCUMENTATION CLARIFICATION FORM: Dear : Reggie Gutierres MD Date / Time: 10/31/2019 Please exercise your independent, professional judgment in responding to the clarification form. Clinical indicators are provided on the bottom of this form for your review Please check appropriate box(es): [x ] Excisional Debridement: [ x ] Excised [ ] Cut away [ ] Other: Depth / layer: (deepest layer of debridement): [ ] Skin [ ] Subcutaneous [ ] Fascia [ ] Muscle [ ] Tendon [ x] Bone Appearance of wound: (e.g., down to fresh bleeding tissue, etc.) Margins: (please specify): / x x Instruments used: [ ] Scissors [ ] Scalpel [ ] Other: [ ] Other procedure diagnosis (Please specify if any) [ ] Unable to determine Physician Signature: Date/Time: For continuity of documentation, please document condition throughout progress notes and discharge summary. Thank You. To be completed by CDI/Coding staff for physician review: Present Clinical Indicators - Signs / Symptoms / Labs Results and Location in Medical Record [ x] Irrigation and debridement of left foot abscess Op note on 10/23 [ x ] We performed an excisional debridement with a knife as well as a curette Op note on 10/23 [ x] We performed an excisional debridement. We worked down to the bony level Op note on 10/23 [x ] We opened the midfoot joints and irrigated into the joints themselves as well Op note on 10/23 [x ] We dissected down through the subcutaneous tissue to the fascia, which was opened. We encountered a large purulent abscess. Op note on 10/23 Present Risk Factors Results and Location in Medical Record [ ] Bedridden/Immobile patient [ x ] Left foot infection with abscess over the dorsal foot Op note on 10/23 [ ] [ ] Present Treatments Results and Location in Medical Record [x ] Surgical intervention Irrigation and debridement of left foot abscess - Op note on 10/23 [ ] Dressing changes/MIST therapy/Hyperbaric therapy [ x ] Packed wound comfortable sending pt home with f/u in 10-14 days Family medicine progress notes on 10/29 [ x ] Vancomycin 1.5 gm IV Medication on 10/22 CDS/Financial Operations Analyst Signature: TRUE Phone #: Date/Time: 10/31/2019 This is a permanent part of the Medical Record MTDD
== END 2019-10-30 15:30 | disposition home or self-care (01) | DRG 854 ==
LOC: ERS 13:06 → IMCU/EMU 16:17 → 2NO 10-25 15:41
PROVIDERS: ADMIT Family Medicine; ATTEND Family Medicine
PROC: 0YBN0ZZ Excision of Left Foot, Open Approach (ICD-10-PCS; principal; 2019-10-24)
PROC: 02HV33Z Insertion of Infusion Device into Superior Vena Cava, Percutaneous Approach (ICD-10-PCS; 2019-10-28)
DX: A41.9 Sepsis, unspecified organism (principal); L03.116 Cellulitis of left lower limb; E87.1 Hypo-osmolality and hyponatremia; M86.9 Osteomyelitis, unspecified; F10.10 Alcohol abuse, uncomplicated; R73.9 Hyperglycemia, unspecified; R65.20 Severe sepsis without septic shock; G62.9 Polyneuropathy, unspecified; M14.60 Charcot's joint, unspecified site; I48.0 Paroxysmal atrial fibrillation; M48.061 Spinal stenosis, lumbar region without neurogenic claudication; M79.601 Pain in right arm; E83.51 Hypocalcemia; D64.9 Anemia, unspecified; Z20.828 Contact with and (suspected) exposure to other viral communicable diseases; Z89.422 Acquired absence of other left toe(s)
CPT/HCPCS: 36415; 36569; 71045; 80053; 80202; 82550; 82607; 82746; 83036; 83605; 83690; 83735; 83880; 84484; 84550; 85007; 85025; 85027; 85652; 86140; 87040; 87070; 87205; 93005; 93306; 96361; 96365; 96366; 96367; 96375; 96376; A9579; C1751; J0692; J0878; J1100; J1335; J1644; J1650; J1885; J2060; J2185; J2405; J2704; J2765; J3010; J3370; J3490; J7050; S0028; U0002

== ENCOUNTER 2020-10-30 16:35 | Inpatient (IN) | payer BC ==
[2020-10-30] MEDS ORDERED: Morphine 4 MG/ML VIAL ONE (19:20)
[2020-10-30] MEDS ORDERED: Ondansetron PF 4 MG/2 ML Vial ONE (19:20)
[2020-10-30] MEDS ORDERED: Cefepime 2 GM VIAL ONE (19:20)
[2020-10-30] MEDS ORDERED: Acetaminophen 500 MG TAB ONE (20:02)
[2020-10-30 22:08] LABS: Hemoglobin 14.4 g/dL (14.0-18.0); Manual Diff?? YES; Mean Corpuscular HGB CONC 33.1 g/dL (32.0-36.0); Mean Corpuscular Hemoglobin 33.7 pg (27.0-31.0); Mean Platelet Volume 8.4 fL (7.4-10.4); Platelet Count 246 thou/uL (130-400); Red Blood Cell (RBC) Count 4.27 mill/uL (4.70-6.10); White Blood Cell (WBC) Count 20.6 thou/uL (4.8-10.8)
[2020-10-30 22:10] LABS: Band 13 % (5-11); Eosinophils 1 % (0-10); Lymphocytes 4 % (21-51); MDiff Complete? YES; Monocytes 11 % (0-10); Myelocyte 1 % (0-0); Neutrophil 71 % (42-75); Platelet Morphology Comment Appears Adequate; RBC Morphology Normal
[2020-10-30 22:27] LABS: Bilirubin Negative (Negative); Blood, Urine Negative (Negative); Clarity Clear (Clear); Glucose, Urine (Dipstick) 100 mg/dL (Negative); Ketone, Urine Negative (Negative); Leukocyte Negative Leu/uL (Negative); Nitrite Negative (Negative); Protein, Urine (Dipstick) Trace mg/dL (Neg-Trace); Specific Gravity, Urine 1.025 (1.002-1.036); Urobilinogen 0.2 mg/dL (Less than 2); pH, Urine 5.5 (5.0-9.0)
[2020-10-30 22:28] LABS: RBC/HPF 0-3 HPF (0-3); Squamous Epithelial 0-3 HPF (0-3); WBC/HPF 0-3 HPF (0-3)
[2020-10-30] MEDS ORDERED: Ondansetron PF 4 MG/2 ML Vial IVP PRN (22:51)
[2020-10-30] MEDS ORDERED: Acetaminophen 650 MG Suppository PR PRN (22:51)
[2020-10-30] MEDS ORDERED: Ondansetron ODT 4 MG TAB PO PRN (22:51)
[2020-10-30 22:52] LABS: Lactic Acid 1.7 mmol/L (0.5-2.2)
[2020-10-30 22:53] LABS: ALT (SGPT) 15 U/L (8-55); AST (SGOT) 17 U/L (5-34); Albumin 3.8 g/dL (3.5-5.0); Alkaline Phosphatase 117 U/L (40-110); Anion Gap 17 mmol/L (10-20); BUN (Urea Nitrogen) 20 mg/dL (8.4-25.7); Calc. Creatinine Clearance 0 mL/min (70-130); Calcium 8.9 mg/dL (7.8-10.44); Carbon Dioxide 27 mmol/L (22-29); Chloride 100 mmol/L (98-107); Globulin 3.5 g/dL (2.4-3.5); Glucose 131 mg/dL (70-105); Potassium 4.3 mmol/L (3.5-5.1); Protein, Total 7.3 g/dL (6.0-8.3); Sodium 140 mmol/L (136-145)
[2020-10-31] MEDS ORDERED: Piperacillin/Tazobactam 3.375 GM in Sodium Chloride 0.9% 100 ML IVPB SCH ×2 (04:00→12:00)
[2020-10-31 09:38] LABS: #Eosinphils 0.2 thou/uL (0.0-0.7); #Monocytes 1.2 thou/uL (0.11-0.59); #Neutrophils 14.1 thou/uL (1.40-6.50); %Basophils 0.1 % (0.0-1.0); %Eosinophils 1.3 % (0.0-10.0); %Lymphocytes 5.8 % (21.0-51.0); %Monocytes 7.3 % (0.0-10.0); %Neutrophils 85.6 % (42.0-75.0); Hemoglobin 13.3 g/dL (14.0-18.0); Mean Corpuscular HGB CONC 32.5 g/dL (32.0-36.0); Mean Corpuscular Hemoglobin 32.8 pg (27.0-31.0); Mean Platelet Volume 7.7 fL (7.4-10.4); Platelet Count 222 thou/uL (130-400); Red Blood Cell (RBC) Count 4.05 mill/uL (4.70-6.10); White Blood Cell (WBC) Count 16.4 thou/uL (4.8-10.8)
[2020-10-31 09:43] LABS: Hemoglobin A1c 5.3 % (4.0-6.0)
[2020-10-31] MEDS: Sodium Chloride 0.9% 1,000 ML IV SCH ×4 (09:57→21:34)
[2020-10-31 09:58] LABS: Anion Gap 11 mmol/L (10-20); BUN (Urea Nitrogen) 15 mg/dL (8.4-25.7); Calc. Creatinine Clearance 0 mL/min (70-130); Calcium 8.8 mg/dL (7.8-10.44); Carbon Dioxide 24 mmol/L (22-29); Chloride 106 mmol/L (98-107); Glucose 122 mg/dL (70-105); Potassium 4.5 mmol/L (3.5-5.1); Sodium 136 mmol/L (136-145)
[2020-10-31] MEDS: Enoxaparin Sodium 40 MG/0.4 ML SYRINGE SC SCH (09:59)
[2020-10-31] MEDS: Vancomycin 1.5 GRAM/300 ML BAG 1.5 GM in Premix Bag 1 BAG IVPB SCH ×2 (11:06→21:33)
[2020-10-31 11:43] VITALS: BMI 29.0
[2020-10-31] MEDS ORDERED: Piperacillin/Tazobactam 3.375 GM VIAL ONE (12:46)
[2020-10-31] MEDS ORDERED: Ketorolac Tromethamine 30 MG/ML VIAL IVP PRN (16:41)
[2020-10-31] MEDS ORDERED: Ketorolac Tromethamine 30 MG/ML VIAL IVP SCH (16:45)
[2020-10-31] MEDS: Acetaminophen 325 MG TAB PO PRN (16:51)
[2020-10-31] MEDS: Piperacillin/Tazobactam 3.375 GM in Sodium Chloride 0.9% 100 ML IVPB SCH (18:23)
[2020-10-31 23:19] LABS: SARS-CoV-2 PCR by NAA Not Detected (NotDetected)
[2020-11-01] MEDS: Piperacillin/Tazobactam 3.375 GM in Sodium Chloride 0.9% 100 ML IVPB SCH ×3 (05:00→19:50)
[2020-11-01] MEDS: Acetaminophen 325 MG TAB PO PRN (08:28)
[2020-11-01] MEDS: Vancomycin 1.5 GRAM/300 ML BAG 1.5 GM in Premix Bag 1 BAG IVPB SCH (08:35)
[2020-11-01] MEDS: Enoxaparin Sodium 40 MG/0.4 ML SYRINGE SC SCH (09:09)
[2020-11-01 09:35] LABS: #Eosinphils 0.1 thou/uL (0.0-0.7); #Lymphocytes 0.6 thou/uL (1.20-3.40); #Monocytes 0.8 thou/uL (0.11-0.59); #Neutrophils 10.6 thou/uL (1.40-6.50); %Basophils 0.1 % (0.0-1.0); %Eosinophils 0.6 % (0.0-10.0); %Lymphocytes 4.7 % (21.0-51.0); %Monocytes 6.2 % (0.0-10.0); %Neutrophils 88.4 % (42.0-75.0); Hemoglobin 12.6 g/dL (14.0-18.0); Mean Corpuscular HGB CONC 33.2 g/dL (32.0-36.0); Mean Corpuscular Hemoglobin 33.2 pg (27.0-31.0); Mean Corpuscular Volume 99.9 fL (78.0-98.0); Mean Platelet Volume 7.5 fL (7.4-10.4); Platelet Count 219 thou/uL (130-400)
[2020-11-01 09:53] LABS: Anion Gap 13 mmol/L (10-20); BUN (Urea Nitrogen) 18 mg/dL (8.4-25.7); Calc. Creatinine Clearance 123 mL/min (70-130); Carbon Dioxide 20 mmol/L (22-29); Chloride 106 mmol/L (98-107); Glucose 103 mg/dL (70-105); Potassium 4.2 mmol/L (3.5-5.1); Sodium 135 mmol/L (136-145)
[2020-11-01] MEDS: Sodium Chloride 0.9% 1,000 ML IV SCH ×2 (14:13→18:45)
[2020-11-01] MEDS ORDERED: Magnevist 469MG/ML 20 ML VIAL ONE (15:45)
[2020-11-01 20:10] LABS: Vancomycin, Trough 12.1 ug/mL
[2020-11-01] MEDS ORDERED: VANCOMYCIN 1.25 GM/250 ML BAG 1.25 GM in Premix Bag 1 BAG IVPB SCH (22:00)
[2020-11-01] MEDS: Vancomycin HCl 1.25 GM in Sodium Chloride 0.9% 250 ML 250 ML IVPB SCH (22:50)
[2020-11-02] MEDS: Sodium Chloride 0.9% 1,000 ML IV SCH ×2 (04:29→15:16)
[2020-11-02] MEDS: Piperacillin/Tazobactam 3.375 GM in Sodium Chloride 0.9% 100 ML IVPB SCH ×2 (04:30→14:09)
[2020-11-02 06:14] LABS: #Basophils 0.1 thou/uL (0.0-0.2); #Eosinphils 0.2 thou/uL (0.0-0.7); #Lymphocytes 1.2 thou/uL (1.20-3.40); #Neutrophils 7.6 thou/uL (1.40-6.50); %Basophils 0.5 % (0.0-1.0); %Eosinophils 2.4 % (0.0-10.0); %Lymphocytes 11.7 % (21.0-51.0); %Monocytes 10.3 % (0.0-10.0); %Neutrophils 75.2 % (42.0-75.0); Hemoglobin 12.9 g/dL (14.0-18.0); Mean Platelet Volume 7.6 fL (7.4-10.4); Platelet Count 228 thou/uL (130-400); RBC Distribution Width 12.2 % (11.5-14.5); Red Blood Cell (RBC) Count 4.02 mill/uL (4.70-6.10); White Blood Cell (WBC) Count 10.1 thou/uL (4.8-10.8)
[2020-11-02] MEDS: Vancomycin HCl 1.25 GM in Sodium Chloride 0.9% 250 ML 250 ML IVPB SCH ×2 (06:20→19:20)
[2020-11-02] MEDS: Enoxaparin Sodium 40 MG/0.4 ML SYRINGE SC SCH (09:59)
[2020-11-02] MEDS ORDERED: CEFAZOLIN 2 GM in Premix Bag 1 BAG IVPB SCH (10:30)
[2020-11-02] MEDS ORDERED: PHENYLEPHRINE-NS 100 MCG/ML 10 ML SYRINGE ONE (12:02)
[2020-11-02] MEDS ORDERED: Piperacillin/Tazobactam 3.375 GM VIAL ONE (12:21)
[2020-11-02] MEDS ORDERED: Sodium Chloride 0.9% 100 ML ONE (12:21)
[2020-11-02] MEDS ORDERED: Neomycin-Polymyxin 1 ML AMP ONE (12:59)
[2020-11-02] MEDS ORDERED: Midazolam HCl 2 mg/2 ml Vial ONE (12:59)
[2020-11-02] MEDS ORDERED: Fentanyl 100 MCG/2 ML VIAL ONE ×2 (12:59→13:44)
[2020-11-02] MEDS ORDERED: PROPOFOL 200 MG/20 ML VIAL ONE (13:21)
[2020-11-02] MEDS ORDERED: Lidocaine 1% PF 5 ML VIAL ONE (13:21)
[2020-11-02] MEDS ORDERED: Ondansetron PF 4 MG/2 ML Vial ONE (13:21)
[2020-11-02] MEDS ORDERED: Esmolol 100 MG/10 ML VIAL ONE (13:21)
[2020-11-02] MEDS: Acetaminophen 325 MG TAB PO PRN (20:08)
[2020-11-03] MEDS: Sodium Chloride 0.9% 1,000 ML IV SCH (02:26)
[2020-11-03] MEDS: Piperacillin/Tazobactam 3.375 GM in Sodium Chloride 0.9% 100 ML IVPB SCH ×4 (02:45→19:57)
[2020-11-03] MEDS: Vancomycin HCl 1.25 GM in Sodium Chloride 0.9% 250 ML 250 ML IVPB SCH ×4 (02:45→18:35)
[2020-11-03] MEDS: Acetaminophen 325 MG TAB PO PRN (05:33)
[2020-11-03 06:56] LABS: #Eosinphils 0.3 thou/uL (0.0-0.7); #Monocytes 0.7 thou/uL (0.11-0.59); #Neutrophils 6.4 thou/uL (1.40-6.50); %Basophils 0.2 % (0.0-1.0); %Eosinophils 3.7 % (0.0-10.0); %Lymphocytes 11.8 % (21.0-51.0); %Monocytes 7.7 % (0.0-10.0); %Neutrophils 76.7 % (42.0-75.0); Hemoglobin 12.2 g/dL (14.0-18.0); Mean Corpuscular HGB CONC 33.2 g/dL (32.0-36.0); Mean Corpuscular Hemoglobin 33.1 pg (27.0-31.0); Mean Corpuscular Volume 99.6 fL (78.0-98.0); Mean Platelet Volume 7.6 fL (7.4-10.4); Platelet Count 228 thou/uL (130-400); RBC Distribution Width 12.2 % (11.5-14.5); Red Blood Cell (RBC) Count 3.68 mill/uL (4.70-6.10); White Blood Cell (WBC) Count 8.4 thou/uL (4.8-10.8)
[2020-11-03] MEDS: Enoxaparin Sodium 40 MG/0.4 ML SYRINGE SC SCH (09:25)
[2020-11-03 09:55] LABS: Vancomycin, Trough 14.4 ug/mL
[2020-11-03] MEDS ORDERED: Vancomycin HCl 1.25 GM in Sodium Chloride 0.9% 250 ML 250 ML IVPB SCH (11:00)
[2020-11-04] MEDS: Piperacillin/Tazobactam 3.375 GM in Sodium Chloride 0.9% 100 ML IVPB SCH ×2 (04:58→14:18)
[2020-11-04 08:35] VITALS: TEMP 97.7
[2020-11-04] MEDS: Enoxaparin Sodium 40 MG/0.4 ML SYRINGE SC SCH (09:17)
[2020-11-04] MEDS: Vancomycin 1.5 GRAM/300 ML BAG 1.5 GM in Premix Bag 1 BAG IVPB SCH (11:06)
[2020-11-04] MEDS: Sodium Chloride 0.9% 1,000 ML IV SCH (11:08)
[2020-11-04 16:47] VITALS: BP 181/100
== END 2020-11-04 18:06 | disposition home health service (06) | DRG 854 ==
LOC: ERS 16:35 → SURG A 22:15
PROVIDERS: ADMIT Student in an Organized Health Care Education/Training Program; ATTEND Family Medicine
PROC: 0JBQ0ZZ Excision of Right Foot Subcutaneous Tissue and Fascia, Open Approach (ICD-10-PCS; principal; 2020-11-02)
DX: A41.9 Sepsis, unspecified organism (principal); L03.115 Cellulitis of right lower limb; L02.611 Cutaneous abscess of right foot; L97.419 Non-pressure chronic ulcer of right heel and midfoot with unspecified severity; I48.20 Chronic atrial fibrillation, unspecified; E87.1 Hypo-osmolality and hyponatremia; M14.679 Charcot's joint, unspecified ankle and foot; G62.9 Polyneuropathy, unspecified; F17.220 Nicotine dependence, chewing tobacco, uncomplicated; R73.9 Hyperglycemia, unspecified; Z20.822 Contact with and (suspected) exposure to COVID-19; Z89.412 Acquired absence of left great toe; Z79.01 Long term (current) use of anticoagulants; Z98.890 Other specified postprocedural states
CPT/HCPCS: 36415; 80048; 80053; 80202; 81003; 83036; 83605; 85025; 87040; 87070; 87077; 87186; 87205; 93005; 96365; 96366; 96367; 96368; A9579; J0692; J1650; J1885; J2250; J2270; J2405; J2543; J2704; J3010; J3370; J3490; J7050; U0003; U0005